=== PATIENT | female | born 1990 | race Caucasian/White ===

== ENCOUNTER 2022-02-13 15:25 | Inpatient (IN) | payer MEDICAID ==
[2022-02-13] MEDS ORDERED: KETOROLAC 15 MG/ML VIAL IVP STA (15:47)
[2022-02-13] MEDS ORDERED: DEXAMETHASONE 10 MG/ML VIAL IVP STA (15:47)
[2022-02-13] MEDS ORDERED: SODIUM CHLORIDE 0.9% 1,000 ML IV STA ×2 (15:47→16:19)
--- NOTE | 2022-02-13 15:50 | ED Physician Documentation ---
PD HPI URI - Stated complaint Stated Complaint: SOA,BACK PX - Chief complaint Chief Complaint: Fever - History obtained from History obtained from: Patient, Family - History of Present Illness Timing - onset: How many days ago (2) Timing duration: Days (2) Timing details: Gradual onset, Still present Associated symptoms: Fever, Chills, Sweats, Nasal congestion, Rhinorrhea, Sore throat, Dry cough, Dyspnea, Other (back and neck pain) Contributing factors: No: Sick contact Improves by: Rest, Medication Worsened by: Activity Similar symptoms before: Has not had sx before Recently seen: Not recently seen - Additional information Additional information: Previously well 31-year-old female has developed a fever cough congestion neck and back pain sweats muscle aches sore throat and urinary burning. Review of Systems Constitutional: reports: Fever, Chills, Myalgias, Fatigue, Sweats Eyes: denies: Decreased vision Ears: denies: Ear pain Nose: reports: Rhinorrhea / runny nose, Congestion Throat: reports: Sore throat Cardiac: denies: Chest pain / pressure, Palpitations Respiratory: reports: Dyspnea, Cough GI: denies: Abdominal Pain, Nausea, Vomiting, Constipation, Diarrhea : reports: Dysuria, Frequency Skin: denies: Rash Musculoskeletal: reports: Back pain. denies: Neck pain, Extremity pain Neurologic: reports: Headache. denies: Generalized weakness, Focal weakness, Numbness, Head injury, LOC PD PAST MEDICAL HISTORY - Present Medications Home Medications: Ambulatory Orders Medication Instructions Recorded Confirmed Dextroamphetamine/Amphetamine 10 mg PO DAILY 02/14/22 02/14/22 [Adderall Xr 10 mg Capsule] - Allergies Allergies/Adverse Reactions: Allergies Allergy/AdvReac Type Severity Reaction Status Date / Time No Known Drug Allergies Allergy Verified 02/13/22 15:36 PD ED PE NORMAL - Vitals Vital signs reviewed: Yes (Febrile tachycardic tachypneic and hypertensive with normal oxygen saturati) - General General: Alert and oriented X 3, Well developed/nourished, Other (The patient appears anxious and frustrated) - HEENT HEENT: Atraumatic, PERRL, EOMI, Ears normal, Other (erythema to the posterior pharynx) - Neck Neck: Supple, no meningeal sign, No bony TTP, Other (shoddy adenopathy bilaterally) - Cardiac Cardiac: No murmur, Other (tachy to 110) - Abdomen Abdomen: Soft, Non tender - Back Back: No CVA TTP, No spinal TTP - Derm Derm: Normal color, Warm and dry, No rash - Extremities Extremities: No deformity, No edema - Neuro Neuro: Alert and oriented X 3, 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, No motor deficit, No sensory deficit, Normal speech Eye Opening: Spontaneous Motor: Obeys Commands Verbal: Oriented GCS Score: 15 - Psych Psych: Normal mood, Normal affect Results - Vitals Vitals: Vital Signs - 24 hr 02/13/22 02/13/22 17:36 17:51 Heart Rate 99 98 Respiratory 18 17 Rate Blood Pressure 134/96 H 104/95 H O2 Saturation 99 99 Oxygen O2 Source Room air - Labs Labs: Microbiology 02/13/22 16:03 Blood Culture - Preliminary Blood - Left Arm NO GROWTH AFTER 1 DAY 02/13/22 15:50 Blood Culture - Preliminary Blood NO GROWTH AFTER 1 DAY 02/13/22 17:23 Urine Culture - Preliminary Urine,Catheterized CULTURE IN PROGRESS. RESULTS TO FOLLOW. 02/13/22 15:50 Group A Strep Throat Culture - Preliminary Throat CULTURE IN PROGRESS. RESULTS TO FOLLOW. Laboratory Tests 02/13/22 02/13/22 02/13/22 15:50 15:50 15:50 WBC 20.2 H RBC 3.85 L Hgb 12.1 Hct 37.0 MCV 96.1 MCH 31.4 H MCHC 32.7 RDW 14.3 Plt Count 245 MPV 9.0 Neut # (Auto) Not Reportable Lymph # (Auto) Not Reportable Elmore # (Auto) Not Reportable Eos # (Auto) Not Reportable Baso # (Auto) Not Reportable Absolute Nucleated RBC Not Reportable Total Counted 100 Band Neuts % (Manual) 6 Abnorm Lymph % (Manual) 0 Nucleated RBC % Not Reportable Neutrophils # (Manual) 19.4 H Lymphocytes # (Manual) 0.4 L Monocytes # (Manual) 0.4 Eosinophils # (Manual) 0.0 Basophils # (Manual) 0.0 Differential Comment MANUAL DIFFERENTIAL WBC Morphology NORMAL APPEARANCE Platelet Estimate NORMAL (130-450,000) Platelet Morphology NORMAL APPEARANCE RBC Morph Micro Appear NORMAL APPEARANCE Sodium Potassium Chloride Carbon Dioxide Anion Gap BUN Creatinine Estimated GFR (MDRD) Glucose Lactic Acid 2.7 H Calcium Total Bilirubin AST ALT Alkaline Phosphatase Total Protein Albumin Globulin Albumin/Globulin Ratio Lipase Urine Color Urine Clarity Urine pH Ur Specific Shafer Urine Protein Urine Glucose (UA) Urine Ketones Urine Occult Blood Urine Nitrite Urine Bilirubin Urine Urobilinogen Ur Leukocyte Esterase Urine RBC Urine WBC Ur Squamous Epith Cells Urine Bacteria Urine Mucus Ur Microscopic Review Urine Culture Comments Urine HCG, Qual Nasal Adenovirus (PCR) NOT DETECTED Nasal B. parapertussis DNA (PCR) NOT DETECTED Nasal Coronavir 229E PCR NOT DETECTED Nasal Coronavir HKU1 PCR NOT DETECTED Nasal Coronavir NL63 PCR NOT DETECTED Nasal Coronavir OC43 PCR NOT DETECTED Nasal Enterovir/Rhinovir PCR NOT DETECTED Nasal Influenza B PCR NOT DETECTED Nasal Influenza A PCR NOT DETECTED Nasal Parainfluen 1 PCR NOT DETECTED Nasal Parainfluen 2 PCR NOT DETECTED Nasal Parainfluen 3 PCR NOT DETECTED Nasal Parainfluen 4 PCR NOT DETECTED Nasal RSV (PCR) NOT DETECTED Nasal B.pertussis DNA PCR NOT DETECTED Nasal C.pneumoniae (PCR) NOT DETECTED Cristobal Human Metapneumo PCR NOT DETECTED Nasal M.pneumoniae (PCR) NOT DETECTED Nasal SARS-CoV-2 (PCR) NOT DETECTED Urine Opiates Screen Ur Oxycodone Screen Urine Methadone Screen Ur Propoxyphene Screen Ur Barbiturates Screen Ur Tricyclics Screen Ur Phencyclidine Scrn Ur Amphetamine Screen U Methamphetamines Scrn U Benzodiazepines Scrn Urine Cocaine Screen U Cannabinoids Screen Group A Strep Rapid 02/13/22 02/13/22 02/13/22 15:50 16:26 16:45 WBC RBC Hgb Hct MCV MCH MCHC RDW Plt Count MPV Neut # (Auto) Lymph # (Auto) Elmore # (Auto) Eos # (Auto) Baso # (Auto) Absolute Nucleated RBC Total Counted Band Neuts % (Manual) Abnorm Lymph % (Manual) Nucleated RBC % Neutrophils # (Manual) Lymphocytes # (Manual) Monocytes # (Manual) Eosinophils # (Manual) Basophils # (Manual) Differential Comment WBC Morphology Platelet Estimate Platelet Morphology RBC Morph Micro Appear Sodium 128 L Potassium 3.2 L Chloride 100 L Carbon Dioxide 20 L Anion Gap 8.0 BUN 9 Creatinine 0.6 Estimated GFR (MDRD) 118 Glucose 150 H Lactic Acid Calcium 8.3 L Total Bilirubin 0.5 AST 18 ALT 13 Alkaline Phosphatase 29 L Total Protein 6.2 L Albumin 3.5 Globulin 2.7 Albumin/Globulin Ratio 1.3 Lipase 25 Urine Color YELLOW Urine Clarity HAZY Urine pH 5.5 Ur Specific Shafer 1.025 Urine Protein NEGATIVE Urine Glucose (UA) 500 H Urine Ketones 40 H Urine Occult Blood TRACE-INTA Urine Nitrite NEGATIVE Urine Bilirubin NEGATIVE Urine Urobilinogen 0.2 (NORMAL) Ur Leukocyte Esterase NEGATIVE Urine RBC 0-5 Urine WBC 11-25 H Ur Squamous Epith Cells MOD Squamous H Urine Bacteria Few Urine Mucus Moderate Strands Ur Microscopic Review INDICATED Urine Culture Comments NOT INDICATED Urine HCG, Qual NEGATIVE Nasal Adenovirus (PCR) Nasal B. parapertussis DNA (PCR) Nasal Coronavir 229E PCR Nasal Coronavir HKU1 PCR Nasal Coronavir NL63 PCR Nasal Coronavir OC43 PCR Nasal Enterovir/Rhinovir PCR Nasal Influenza B PCR Nasal Influenza A PCR Nasal Parainfluen 1 PCR Nasal Parainfluen 2 PCR Nasal Parainfluen 3 PCR Nasal Parainfluen 4 PCR Nasal RSV (PCR) Nasal B.pertussis DNA PCR Nasal C.pneumoniae (PCR) Cristobal Human Metapneumo PCR Nasal M.pneumoniae (PCR) Nasal SARS-CoV-2 (PCR) Urine Opiates Screen Ur Oxycodone Screen Urine Methadone Screen Ur Propoxyphene Screen Ur Barbiturates Screen Ur Tricyclics Screen Ur Phencyclidine Scrn Ur Amphetamine Screen U Methamphetamines Scrn U Benzodiazepines Scrn Urine Cocaine Screen U Cannabinoids Screen Group A Strep Rapid Negative 02/13/22 02/13/22 17:23 17:23 WBC RBC Hgb Hct MCV MCH MCHC RDW Plt Count MPV Neut # (Auto) Lymph # (Auto) Elmore # (Auto) Eos # (Auto) Baso # (Auto) Absolute Nucleated RBC Total Counted Band Neuts % (Manual) Abnorm Lymph % (Manual) Nucleated RBC % Neutrophils # (Manual) Lymphocytes # (Manual) Monocytes # (Manual) Eosinophils # (Manual) Basophils # (Manual) Differential Comment WBC Morphology Platelet Estimate Platelet Morphology RBC Morph Micro Appear Sodium Potassium Chloride Carbon Dioxide Anion Gap BUN Creatinine Estimated GFR (MDRD) Glucose Lactic Acid Calcium Total Bilirubin AST ALT Alkaline Phosphatase Total Protein Albumin Globulin Albumin/Globulin Ratio Lipase Urine Color STRAW Urine Clarity CLEAR Urine pH 6.0 Ur Specific Shafer <=1.005 Urine Protein NEGATIVE Urine Glucose (UA) NEGATIVE Urine Ketones NEGATIVE Urine Occult Blood NEGATIVE Urine Nitrite NEGATIVE Urine Bilirubin NEGATIVE Urine Urobilinogen 0.2 (NORMAL) Ur Leukocyte Esterase TRACE H Urine RBC None Seen Urine WBC 6-10 H Ur Squamous Epith Cells NONE SEEN Urine Bacteria Rare Urine Mucus Ur Microscopic Review Urine Culture Comments INDICATED Urine HCG, Qual Nasal Adenovirus (PCR) Nasal B. parapertussis DNA (PCR) Nasal Coronavir 229E PCR Nasal Coronavir HKU1 PCR Nasal Coronavir NL63 PCR Nasal Coronavir OC43 PCR Nasal Enterovir/Rhinovir PCR Nasal Influenza B PCR Nasal Influenza A PCR Nasal Parainfluen 1 PCR Nasal Parainfluen 2 PCR Nasal Parainfluen 3 PCR Nasal Parainfluen 4 PCR Nasal RSV (PCR) Nasal B.pertussis DNA PCR Nasal C.pneumoniae (PCR) Cristobal Human Metapneumo PCR Nasal M.pneumoniae (PCR) Nasal SARS-CoV-2 (PCR) Urine Opiates Screen NEGATIVE Ur Oxycodone Screen NEGATIVE Urine Methadone Screen NEGATIVE Ur Propoxyphene Screen NEGATIVE Ur Barbiturates Screen NEGATIVE Ur Tricyclics Screen NEGATIVE Ur Phencyclidine Scrn NEGATIVE Ur Amphetamine Screen POSITIVE H U Methamphetamines Scrn NEGATIVE U Benzodiazepines Scrn NEGATIVE Urine Cocaine Screen NEGATIVE U Cannabinoids Screen NEGATIVE Group A Strep Rapid - Rads (name of study) chest Radiology: Prelim report reviewed (Impression: Portable chest within normal limits for age.), EMP read indepedently, See rad report PD MEDICAL DECISION MAKING - ED course Complexity details: reviewed old records, reviewed results, re-evaluated samir castellon, considered differential, d/w patient, d/w family ED course: 31-year-old Leah Kothari appears to be ill on arrival to the emergency department she is febrile tachycardic tachypneic and hypertensive. She has pains all over and our concern was for possible COVID. She has a markedly elevated white blood cell count and a bad sore throat more consistent with the possibility of acute strep infection. She is treated in the emergency department with intravenous saline dexamethasone and Toradol she has Dilaudid given for additional pain relief. She feels improved. She is treated empirically for respiratory illness concerning for sepsis with Rocephin and azithromycin. Her chest x-ray at here appears clear. The patient does have symptoms of urinary urgency frequency and dysuria and she does have 11-25 white blood cells per high-power field in the urine specimen which is contaminated with squamous cells.Her respiratory panel is negative.She is diagnosed with s epsis with a urinary source.Dr. Hook is consulted in the case and graciously agrees to admit the patient to the hospital. - Sepsis Event Current Stage of Sepsis: Sepsis Initial Hypotension: Not hypotensive Possible source of Sepsis: Genitourinary Mental/Cognitive Status: Alert/Oriented X3, Normal for patient Reason for not giving 30ml/kg crystalloid fluids: Not in septic shock Sepsis Comment: Identified a sepsis empirically administered Rocephin and azithromycin with potential respiratory source. The patient is symptomatic source includes urinary urgency frequency and dysuria and she does appear to have white blood cells in her urine. Departure - Departure Disposition: 66 [facility] DC/Xfer Clinical Impression: Septicemia Urinary tract infection Qualifiers: Urinary tract infection type: acute cystitis Hematuria presence: without hematuria Qualified Code(s): N30.00 - Acute cystitis without hematuria Discharge Date/Time: 02/13/22 18:39
[2022-02-13 15:56] LABS: BASOPHILS % (AUTO) 0.2 %; HGB - HEMOGLOBIN 12.1 g/dL (12.0-16.0); LYMPHOCYTES % (AUTO) 1.3 %; MEAN CORPUSCULAR HEMOGLOBIN 31.4 pg (27.0-31.0); MEAN CORPUSCULAR HGB CONC 32.7 g/dL (32.0-36.0); MEAN CORPUSCULAR VOLUME 96.1 fL (81.0-99.0); MONOCYTES % (AUTO) 6.8 %; NEUTROPHILS % (AUTO) 91.2 %; PLT - PLATELET COUNT 245 10^3/uL (130-450); RED BLOOD COUNT 3.85 10^6/uL (4.20-5.40); RED CELL DISTRIBUTION WIDTH 14.3 % (12.0-15.0); WHITE BLOOD COUNT 20.2 x10^3/uL (4.8-10.8)
[2022-02-13 15:57] LABS: ABNORMAL LYMPHS % (MANUAL) 0 %
[2022-02-13] MEDS ORDERED: HYDROmorphone 1 MG/ML CARPUJECT IVP STA (16:10)
[2022-02-13] MEDS ORDERED: ONDANSETRON 4 MG/2 ML VIAL IVP STA (16:10)
--- NOTE | 2022-02-13 16:15 | XRAY Report ---
PROCEDURE: Chest 1 View X-Ray INDICATIONS: chest pain TECHNIQUE: One view of the chest was acquired. COMPARISON: None FINDINGS: Surgical changes and devices: None. Lungs and pleura: No pleural effusions or pneumothorax. Lungs are clear. Mediastinum: Mediastinal contours appear normal. Heart size is normal. Bones and chest wall: No suspicious bony lesions. Overlying soft tissues appear unremarkable. IMPRESSION: Portable chest within normal limits for age. Reviewed by: Brigido Sainz MD on 02/13/2022 3:14 PM [facility] Approved by: Brigido Sainz MD on 02/13/2022 3:14 PM [facility] Station ID: [id number]
[2022-02-13 16:20] LABS: RAPID STREP SCREEN Negative (Negative)
[2022-02-13] MEDS ORDERED: cefTRIAXone 1 GM in SODIUM CHLORIDE 0.9% MINIBAG 100 ML IV STA (16:27)
[2022-02-13] MEDS ORDERED: AZITHROMYCIN INJ 500 MG in SODIUM CHLORIDE 0.9% 250 ML IV STA (16:27)
[2022-02-13 16:31] LABS: BAND NEUTROPHILS % (MANUAL) 6 %; LYMPHOCYTES # (MANUAL) 0.4 10^3/uL (1.5-3.5); LYMPHOCYTES % (MANUAL) 2 %; MONOCYTES # (MANUAL) 0.4 10^3/uL (0.0-1.0); NEUTROPHILS # (MANUAL) 19.4 10^3/uL (1.5-6.6)
[2022-02-13 16:32] LABS: DIFFERENTIAL COMMENT MANUAL DIFFERENTIAL; PLATELET ESTIMATE, MANUAL NORMAL (130-450,000) (NORMAL); PLATELET MORPHOLOGY NORMAL APPEARANCE (NORMAL); RBC MORPHOLOGY (MULTIPLE) NORMAL APPEARANCE (NORMAL); WBC MORPHOLOGY (MULTIPLE) NORMAL APPEARANCE (NORMAL)
[2022-02-13 16:41] LABS: ALBUMIN 3.5 g/dL (3.2-5.5); ALBUMIN/GLOBULIN RATIO 1.3 (1.0-2.2); BILIRUBIN,TOTAL 0.5 mg/dL (0.2-1.0); CALCIUM 8.3 mg/dL (8.5-10.3); CREATININE 0.6 mg/dL (0.4-1.0); POTASSIUM 3.2 mmol/L (3.5-5.0); TOTAL PROTEIN 6.2 g/dL (6.7-8.2)
[2022-02-13 16:50] LABS: BILIRUBIN,URINE NEGATIVE (NEGATIVE); GLUCOSE, URINE (UA) 500 mg/dL (NEGATIVE); KETONES,URINE (UA) 40 mg/dL (NEGATIVE); LEUKOCYTE ESTERASE, URINE NEGATIVE (NEGATIVE); NITRITE,URINE NEGATIVE (NEGATIVE); OCCULT BLOOD,URINE TRACE-INTA (NEGATIVE); PH,URINE 5.5 PH (5.0-7.5); PROTEIN,URINE NEGATIVE (NEGATIVE); UROBILINOGEN,URINE 0.2 (NORMAL) E.U./dL (NORMAL)
[2022-02-13 16:54] LABS: CLARITY,URINE HAZY (CLEAR); HCG UR QUAL NEGATIVE
[2022-02-13 17:01] LABS: CORONAVIRUS 229E-RESP PCR NOT DETECTED; CORONAVIRUS HKU1-RESP PCR NOT DETECTED; CORONAVIRUS NL63-RESP PCR NOT DETECTED; CORONAVIRUS OC43-RESP PCR NOT DETECTED; HUMAN METAPNEUMOVIRUS NOT DETECTED; INFLUENZA A- RESP PCR PANEL NOT DETECTED; INFLUENZA B - RESP PCR PANEL NOT DETECTED; PARAINFLUENZA VIRUS 1 NOT DETECTED; PARAINFLUENZA VIRUS 2 NOT DETECTED; RHINOVIRUS/ENTEROVIRUS NOT DETECTED; SARS-CoV-2 -RESP PCR PANEL NOT DETECTED
[2022-02-13 17:02] LABS: B. PARAPERTUSSIS- RESP PCR PAN NOT DETECTED; B. PERTUSSIS- RESP PCR PANEL NOT DETECTED; C. PNEUMONIAE- RESP PCR PANEL NOT DETECTED; M. PNEUMONIAE- RESP PCR PANEL NOT DETECTED; PARAINFLUENZA VIRUS 3 NOT DETECTED; PARAINFLUENZA VIRUS 4 NOT DETECTED; RSV- RESP PCR PANEL NOT DETECTED
[2022-02-13 17:03] LABS: BACTERIA,URINE Few /HPF (None Seen); RBC,URINE 0-5 /HPF (0-5); SQUAMOUS EPITHELIAL CELL,UR MOD Squamous (<= Few)
[2022-02-13 17:04] LABS: MUCUS,URINE Moderate Strands
--- NOTE | 2022-02-13 18:03 | CT Report ---
PROCEDURE: Abdomen/Pelvis WO INDICATIONS: urinary sepsis ? obstruction TECHNIQUE: Noncontrast 5 mm thick sections acquired from the diaphragms to the symphysis. 5 mm coronal and sagi ttal reformats were then performed. For radiation dose reduction, the following was used: automated exposure control, adjustment of mA and/or kV according to patient size. COMPARISON: None. FINDINGS: Image quality: Excellent. ABDOMEN: Lung bases: Small to moderate sized airspace opacity left infrahilar region is seen. Heart size is n ormal. Solid organs: There is hepatomegaly, no discrete hepatic lesion. Spleen is normal in size. Gallbladd er is within normal limits Pancreas is normal in contours. No adrenal nodules. Kidneys are normal in size, without hydronephrosis or nephrolithiasis. Peritoneum and bowel: Unenhanced bowel loops demonstrate normal wall thickness and caliber. No free fluid or air. Mild fecal stasis in the colon is seen. Appendix is visualized in right lower quadran t and is within normal limits. Nodes and vessels: No retroperitoneal or mesenteric adenopathy by siz e criteria. Aorta and inferior vena cava are normal in caliber. Miscellaneous: No ventral hernias. PELVIS: Genitourinary: Bladder wall thickness is normal. Miscellaneous: No inguinal hernias or adenopathy. Uterus and bilateral ovaries shows no gross abnorm ality. Bones: No suspicious bony lesions. No vertebral body compression fractures. IMPRESSION: 1. Left lower lobe infiltrate/atelectasis extending to the left infrahilar region. 2. Mild hepatomegaly, no discrete hepatic lesion. 3. Mild constipation. No bowel obstruction or abnormal bowel wall thickening. Normal appendix. No cristine e fluid or free air. 4. No renal stone or hydronephrosis. Reviewed by: Vance Lindsey MD on 02/13/2022 6:02 PM PDT Approved by: Vance Lindsey MD on 02/13/2022 6:02 PM PDT Station ID: [id number]
[2022-02-13] MEDS ORDERED: ONDANSETRON ODT 4 MG TABLET TL PRN (18:09)
[2022-02-13] MEDS ORDERED: SODIUM CHLORIDE FLUSH 0.9% 10 ML SYRINGE IVP PRN (18:09)
[2022-02-13] MEDS ORDERED: ONDANSETRON 4 MG/2 ML VIAL IVP PRN (18:09)
[2022-02-13] MEDS ORDERED: SODIUM CHLORIDE 0.9% 1,000 ML IV ONE (18:18)
[2022-02-13] MEDS ORDERED: POTASSIUM CHLORIDE 20 MEQ TABLET PO ONE (18:29)
[2022-02-13] MEDS: MORPHINE 2 MG/ML CARPUJECT IVP PRN ×3 (19:10→23:19)
[2022-02-13] MEDS: SODIUM CHLORIDE 0.9% 1,000 ML IV SCH (19:57)
--- NOTE | 2022-02-13 20:09 | HISTORY & PHYSICAL EXAMINATION ---
Chief Complaint - Chief Complaint Chief Complaint: Sore throat, severe left neck and left arm pain with fevers History of Present Illness - Admitted From Admitted From:: Home - History Obtained From Records Reviewed: [facility] History obtained from: Patient Exam Limitations: None - History of Present Illness HPI Comment/Other: She is a 31-year-old white female who has no major medical illnesses. She drinks 2 bottles of wine a week and vapes occasionally. 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 She works all the time. But she tries to eat right and exercise. She has ADHD with some anxiety and is in therapy for that. She says that she has allergies and when she moved to the [place] in October 2020 she was diagnosed as having "jogger's asthma". She will get a runny nose, postnasal drip, and a cough. Yesterday, she felt very fatigued. She had a sore throat and thought that she had recurrence of her allergies. This morning she woke up with diffuse body aches that were severe. She developed a dry, nonproductive cough. Her lungs felt like "they were on fire." Fevers were present.. She denies eustachian tube dysfunction, ear pain, exudate. There was tremendous pain in her C spine that radiated down her left arm and made her left arm numb. Sometimes the pain would radiate down to the shoulder and then to the front of her left upper chest around her clavicle. She was miserable with the diffuse aches. She denies urgency, frequency. She says that she gets occasional urinary tract infections and has no symptoms of that. She finally drove her self to the emergency room when the left neck and left arm pain became unbearable. She had taken some Tylenol and there is no relief of the pain or the fever. Every time she tried to lay back the pain in her neck was excruciating. When she was in the emergency room she was crying with the pain. Temperature was 38.4. Heart rate 117. Blood pressure 140/81. Respirations 26. 98% on room air. She scored her pain at a 10 out of a 10. On examination the emergency room doctor noted her to be febrile, tachycardic, tachypneic. Anxious, frustrated. Erythema to the posterior pharynx. No meningeal signs. No mention of her lung exam. Cardiac exam was negative other than tachycardia to 110. Sodium was 128. Potassium 3.2. Chloride 100. Carbon dioxide 20. BUN and creatinine were normal. Glucose 150. Lactic acid 2.7. White cell count 20.2 thousand. Hemoglobin 12.1. Urinalysis had squamous cells and has to be repeated. She had glucosuria, ketonuria, white cells, a few bacteria and was leukocyte Estrace negative and nitrite negative. PCR was negative for COVID. Group A rapid strep was negative. Chest x-ray was normal without any acute cardiopulmonary process. A CT of abdomen and pelvis was done to make sure that she had no urinary sepsis and she had hepatomegaly. She had a small to moderate size airspace opacity in the left infrahilar region. Bowels are normal. Bladder was normal. Constipation. Treatment in the emergency room consisted of fluids, empiric antibiotic therapy in the face of someone who has sepsis criteria emergent. She is also received morphine. Her tachycardia has gotten better. Fever is gone and she has a temp of 37.2. Blood pressure came down to 104 and then is bounced back up to 122. Respirations are down to 13. Lactic acid is normal. History - Past Medical History Cardiovascular: reports: None Respiratory: reports: Asthma (From allergies.) Neuro: reports: None Endocrine/Autoimmune: reports: None GI: reports: None DESIGN TECH: reports: Other () : reports: Other (intermittent cystitis) HEENT: reports: Other (astigmatism) Psych: reports: Anxiety, ADD/ADHD Musculoskeletal: reports: None Derm: reports: None MRSA Hx?: No - Family & Social History Family History Comment/Other: Dad is approximately 60 years of age and has high blood pressure, diabetes, peripheral neuropathy. Mom has high blood pressure. 4 sisters. All of them are healthy and have no major medical illnesses. No children Living arrangement: At home Living Situation: Alone Social History Notes: [place]. [place] and that is where she lives. Her parents are nearby. And she gets a lot of social support from family and friends here. She is self-employed as an lead accountant. She is pretty stressed. Drinks about 2 bottles of wine a week, vapes intermittently. No tobacco products. Intermittent marijuana. No use of cocaine, heroin, LSD, methamphetamines. - Substance History Use: Uses substance without health or social issues: Tobacco, Alcohol - POLST Patient has POLST: No POLST Status: Full Code Meds/Allgy - Allergies Allergies/Adverse Reactions: Allergies Allergy/AdvReac Type Severity Reaction Status Date / Time No Known Drug Allergies Allergy Verified 02/13/22 15:36 Review of Systems - Constitutional Constitutional: reports: Fatigue, Fever, Chills, Malaise, Weakness, Poor appetite - Eyes Eyes: reports: Blurred vision (from astigmatism). denies: Pain, Irritation, Amaurosis, Dipolpia - Ears, Nose & Throat Ears, Nose & Throat: reports: Nasal congestion, Postnasal drainage, Sore throat. denies: Ear pain, Hearing loss, Hearing aids, Tinnitus, Vertigo, Nasal discharge, Nosebleeds, Nasal obstruction - Cardiovascular Cariovascular: denies: Irregular heart rate, Palpitations, Chest pain, Edema, Syncope, Exertional dyspnea, Decr. exercise tolerance - Respiratory Respiratory: reports: Cough, Wheezing. denies: Sputum production, Snoring, Hemoptysis, Orthopnea, SOB at rest, SOB with exertion, Apnea, Stridor - Gastrointestinal Gastrointestinal: reports: Constipation, Poor appetite. denies: Abdominal pain, Abdominal distention, Diarrhea, Change in bowel habits, Rectal bleeding, Black stools, Bloody stools, Nausea, Vomiting, Coffee grounds emesis, Reflux/heartburn - Genitourinary Genitourinary: reports: Other (So has not been taking them for the last year. Can get painful cramps with menstrual cycle). denies: Dysuria, Frequency, Urgency, Hematuria, Incontinence, Flank pain - Musculoskeletal Musculoskeletal: reports: Muscle pain, Back pain, Muscle aches - Integumentary Integumentary: denies: Rash, Pruritis, Lesions, Dryness - Neurological Neurological: denies: General weakness, Focal weakness, Headache, Dizziness, Numbness, Memory problems, Pre-existing deficit, Seizures, Incoordination - Psychiatric Psychiatric: reports: Anxiety. denies: Depression, Suicidal, Hallucinations, Homicidal - Endocrine Endocrine: denies: Polyuria, Polydypsia, Polyphagia - Hematologic/Lymphatic Hematologic/Lymphatic: denies: Anemia, Bruising, Petechiae Prior Level of Functionality: Completely independent with activities of daily living. She drives a car. Runs her own business. Exam - Vital Signs Reviewed Vital Signs: Yes Vital Signs: Vital Signs x48h Temp Pulse Pulse Resp BP BP Pulse Ox 02/13/22 18:59 37.2 C 88 13 122/75 99 02/13/22 17:51 98 17 104/95 H 99 02/13/22 17:36 99 18 134/96 H 99 02/13/22 15:36 110 H 18 151/97 H 98 02/13/22 15:33 38.4 C H 117 H 26 H 140/81 H 98 - Physical Exam General Appearance: positive: No acute distress, Alert, Mild distress (Anxious. Cannot believe this is happening to her. Mild tearfulness. But she is already asking for her computer so that she can work while she is sick in the hospital) Eyes Bilateral: positive: PERRL, EOMI ENT: positive: Pharyngeal erythema, Dry mucous membranes. negative: Purulent nasal drainage Neck: positive: No JVD. negative: Lymphadenopathy (R), Lymphadenopathy (L), Stiff neck, Carotid bruit Respiratory: positive: No respiratory distress. negative: Wheezes, Rales, Rhonchi Cardiovascular: positive: Regular rate & rhythm, No murmur, No gallop Peripheral Pulses: positive: 1+ Abdomen: positive: Non-tender, No organomegaly, Nml bowel sounds, No distention Skin: positive: Warm, Dry Extremities: positive: Full ROM, No pedal edema Neurologic/Psychiatric: positive: Oriented x3, CN's nml (2-12), Motor nml, Other (She describes a radiculopathy in the C-spine but muscle reflexes and strength is normal in the left arm) Sepsis Event Note (H) - Evaluation Current Stage of Sepsis: Sepsis Possible source of Sepsis: positive: Pulmonary, Genitourinary - Sepsis Criteria Sepsis Criteria: Recorded Temperature greater than 38.3C or Less than 36C, Recorded Heart Rate greater than 90 bpm, Recorded Respiratory Rate greater than 20, WBC count greater than 12,000 or less than 4000, Metabolic: lactate > 2 mmol/L Conclusion/Plan - Problem List (1) Septicemia Conclusion/Plan: Sepsis criteria on presentation. She was signed out to me as a possible UTI but urine was contaminated. We are awaiting a second urine. However, the CT of the abdomen seems to state conclusively that she does have pneumonia. She is on azithromycin and ceftriaxone. Has already received 1 dose. Blood cultures have been done. Lactic acid is already normal. Plan: Follow through with sepsis protocol. Reevaluate in the next few hours to make s ure she is not taking a step back (2) Left lower lobe pneumonia Conclusion/Plan: In a healthy 31-year-old female. However she has mild alcohol abuse, hypergly cemia on labs, and may be at risk for strep. Plan: Follow-up on blood cultures Continue antibiotics empirically until we have cultures and sensitivity Qualifiers: Pneumonia type: due to unspecified organism Qualified Code(s): J18.9 - Pneumonia, unspecified organism (3) Hyperglycemia Conclusion/Plan: She does not have a history of diabetes. She did not receive D5 in the emergency room. I do not have access to the EMS records to see if they gave her D5 on the scene. Plan: Check hemoglobin A1c in the morning Check fasting glucose in the morning (4) Hypokalemia Conclusion/Plan: She is received potassium 40 mEq p.o. once. We will recheck tomorrow morning. (5) Radiculopathy of cervical spine Conclusion/Plan: This pain is new for her. She is never had it before. In the face of sepsis, I want to make sure she does not have a C-spine infection. There is no evidence of meningitis on neck exam. History is suggestive of radiculopathy and exam is negative for any severe compression. Plan: C-spine CT morphine IV prn oxycodone prn (6) Alcohol abuse Conclusion/Plan: With hepatomegaly on CT of the abdomen a well as hyponatremia. Liver enzymes are normal. Plan: Thiamine and folate orally Monitor for signs and symptoms of alcohol withdrawal I have encouraged the patient to stop drinking completely check MUDDS (7) Anxiety Conclusion/Plan: Patient states that she has ADHD, but some of her work symptomatology of insomnia, excessive wariness, may be due to a generalized anxiety disorder. She is also anxious about her health right now, understandably so. At this time she is self-medicating with alcohol and vaping. She is in therapy. I have encouraged her to continue therapy and use other coping mechanisms besides the alcohol and vaping. - Lab Results Lab results reviewed: Yes Fish Bones: 02/13/22 15:50 02/13/22 16:26 - Diagnostic Imaging Results Diagnostic Imaging Results: positive: Final report reviewed - EKG Results EKG Interpreted Independently: No Core Measures - Anticipated LOS I expect patient to be DC'd or transferred within 96 hours.: Yes - DVT/VTE - Prophylaxis VTE/DVT Prophylaxis med ordered at admit?: Yes
[2022-02-13 20:45] LABS: MUDS CUTOFF CONCENTRATIONS CUTOFF CONC BELOW:
[2022-02-13 20:54] LABS: BILIRUBIN,URINE NEGATIVE (NEGATIVE); GLUCOSE, URINE (UA) NEGATIVE (NEGATIVE); KETONES,URINE (UA) NEGATIVE (NEGATIVE); LEUKOCYTE ESTERASE, URINE TRACE (NEGATIVE); NITRITE,URINE NEGATIVE (NEGATIVE); OCCULT BLOOD,URINE NEGATIVE (NEGATIVE); PROTEIN,URINE NEGATIVE (NEGATIVE); UROBILINOGEN,URINE 0.2 (NORMAL) E.U./dL (NORMAL)
[2022-02-13 20:55] LABS: CLARITY,URINE CLEAR (CLEAR)
[2022-02-13 21:03] LABS: BACTERIA,URINE Rare /HPF (None Seen); RBC,URINE None Seen /HPF (0-5); SQUAMOUS EPITHELIAL CELL,UR NONE SEEN (<= Few)
[2022-02-13 21:04] LABS: AMPHETAMINE SCREEN,URINE POSITIVE (NEGATIVE); BARBITURATE SCREEN,UR NEGATIVE (NEGATIVE); BENZODIAZEPINES SCREEN, URINE NEGATIVE (NEGATIVE); COCAINE SCREEN URINE NEGATIVE (NEGATIVE); METHADONE SCREEN, URINE NEGATIVE (NEGATIVE); METHAMPHETAMINES SCREEN, URINE NEGATIVE (NEGATIVE); OPIATE SCREEN, URINE NEGATIVE (NEGATIVE); OXYCODONE SCREEN, URINE NEGATIVE (NEGATIVE); PROPOXYPHENE SCREEN, URINE NEGATIVE (NEGATIVE); THC CANNABINOID SCREEN, URINE NEGATIVE (NEGATIVE); TRICYCLIC ANTIDEPRESSANT,URINE NEGATIVE (NEGATIVE)
[2022-02-14] MEDS: MORPHINE 2 MG/ML CARPUJECT IVP PRN ×3 (01:15→09:12)
[2022-02-14] MEDS: SODIUM CHLORIDE FLUSH 0.9% 10 ML SYRINGE IVP SCH ×3 (01:38→18:58)
[2022-02-14 05:56] LABS: CALCIUM, IONIZED 1.07 mmol/L (1.15-1.33); VBG PH 7.342 (7.31-7.41)
--- NOTE | 2022-02-14 05:56 | CT Report ---
PROCEDURE: CERVICAL SPINE WO INDICATIONS: C SPINE RADICULPATHY W SEPSIS TECHNIQUE: Noncontrast 3 mm thick sections acquired from the skull base to the T4 level. Sagittal and coronal r eformats were then constructed. For radiation dose reduction, the following was used: automated exp osure control, adjustment of mA and/or kV according to patient size. Intravenous contrast not adminis tered due to institutional policy secondary to limited supply. COMPARISON: None. FINDINGS: Image quality: There is metallic streak artifact secondary to patient's dental hardware. Bones: No fractures or subluxation. There is mild straightening of the cervical lordosis. There is m inimal degenerative disc disease at C5-C6. Visualized superior ribs are intact. Soft tissues: Prevertebral soft tissues are normal in thickness. No paravertebral hematomas. No dis crete paravertebral fluid collections are identified to suggest an abscess. Specifically, no definite epidural abscess identified. No apical pneumothoraces. IMPRESSION: 1. No fractures or subluxation. 2. No definite paravertebral fluid collections identified on noncontrast evaluation to suggest an abs cess. If clinical concern persists, follow-up evaluation may be obtained with an MRI. Reviewed by: Nasim Casas MD on 02/13/2022 10:34 PM PDT Approved by: Nasim Casas MD on 02/13/2022 10:34 PM PDT Station ID: [id number]
[2022-02-14 06:00] LABS: BASOPHILS % (AUTO) 0.3 %; HCT - HEMATOCRIT 37.5 % (37.0-47.0); HGB - HEMOGLOBIN 12.1 g/dL (12.0-16.0); LYMPHOCYTES % (AUTO) 4.4 %; MEAN CORPUSCULAR HEMOGLOBIN 31.9 pg (27.0-31.0); MEAN CORPUSCULAR HGB CONC 32.3 g/dL (32.0-36.0); MEAN CORPUSCULAR VOLUME 98.9 fL (81.0-99.0); MEAN PLATELET VOLUME 9.3 fL (7.9-10.8); MONOCYTES % (AUTO) 5.8 %; PLT - PLATELET COUNT 237 10^3/uL (130-450); RED BLOOD COUNT 3.79 10^6/uL (4.20-5.40); RED CELL DISTRIBUTION WIDTH 13.3 % (12.0-15.0); WHITE BLOOD COUNT 23.2 x10^3/uL (4.8-10.8)
[2022-02-14 06:04] LABS: ABNORMAL LYMPHS % (MANUAL) 0 %
[2022-02-14 06:14] LABS: BAND NEUTROPHILS % (MANUAL) 2 %; DIFFERENTIAL COMMENT MANUAL DIFFERENTIAL; LYMPHOCYTES # (MANUAL) 0.7 10^3/uL (1.5-3.5); LYMPHOCYTES % (MANUAL) 3 %; MONOCYTES # (MANUAL) 0.7 10^3/uL (0.0-1.0); NEUTROPHILS # (MANUAL) 21.8 10^3/uL (1.5-6.6); PLATELET ESTIMATE, MANUAL NORMAL (130-450,000) (NORMAL); PLATELET MORPHOLOGY NORMAL APPEARANCE (NORMAL); RBC MORPHOLOGY (MULTIPLE) NORMAL APPEARANCE (NORMAL); WBC MORPHOLOGY (MULTIPLE) NORMAL APPEARANCE (NORMAL)
[2022-02-14 06:15] LABS: CALCIUM 8.4 mg/dL (8.5-10.3); CREATININE 0.7 mg/dL (0.4-1.0); PHOSPHORUS 1.7 mg/dL (2.5-4.6); POTASSIUM 3.9 mmol/L (3.5-5.0)
[2022-02-14] MEDS: SODIUM CHLORIDE 0.9% 1,000 ML IV SCH (06:15)
[2022-02-14] MEDS: CALCIUM CARBONATE CHEW 500 MG TABLET PO SCH ×2 (08:50→11:39)
[2022-02-14] MEDS: ENOXAPARIN 40 MG/0.4 ML SYRINGE SUBQ SCH (08:52)
[2022-02-14] MEDS: polyethylene glycoL 3350 17 GM PACKET PO SCH (09:05)
[2022-02-14] MEDS: cefTRIAXone 2 GM in SODIUM CHLORIDE 0.9% MINIBAG 100 ML IV SCH (09:05)
[2022-02-14] MEDS: AZITHROMYCIN INJ 500 MG in SODIUM CHLORIDE 0.9% 250 ML IV SCH (09:53)
[2022-02-14 10:13] LABS: ESTIMATED AVERAGE GLUCOSE 97 mg/dL (70-100)
--- NOTE | 2022-02-14 13:25 | PROVIDER PROGRESS NOTE ---
Subjective - Prog Note Date Prog Note Date: 02/14/22 - Subjective Subjective: She reports feeling much better compared to yesterday. Still has left-sided neck pain and some dysuria as well as left-sided flank pain. She has left-sided chest pain with inspiration. No cough and she does not feel short of breath. Current Medications - Current Medications Current Medications: Active Medications Acetaminophen (Acetaminophen 325 Mg Tablet) 650 mg PO Q4HR PRN PRN Reason: Pain 1 to 4, or Fever Enoxaparin Sodium (Enoxaparin 40 Mg/0.4 Ml Syringe) 40 mg SUBQ DAILY [facility] Last Admin: 02/14/22 08:52 Dose: 40 mg Ceftriaxone Sodium 2 gm/ (Sodium Chloride) 100 mls @ 200 mls/hr IV DAILY [facility] Last Infusion: 02/14/22 09:45 Dose: Infused Azithromycin 500 mg/ Sodium (Chloride) 250 mls @ 250 mls/hr IV DAILY [facility] Stop: 02/15/22 09:59 Last Infusion: 02/14/22 11:08 Dose: Infused Ondansetron HCl (Ondansetron Odt 4 Mg Tablet) 4 mg TL Q6HR PRN PRN Reason: Nausea / Vomiting Last Admin: 02/14/22 11:44 Dose: 4 mg Ondansetron HCl (Ondansetron 4 Mg/2 Ml Vial) 4 mg IVP Q6HR PRN PRN Reason: Nausea / Vomiting Polyethylene Glycol (Polyethylene Glycol 3350 17 Gm Packet) 17 gm PO DAILY [facility] Last Admin: 02/14/22 09:05 Dose: 17 gm Sodium Chloride (Sodium Chloride Flush 0.9% 10 Ml Syringe) 10 ml IVP 0100,0900,1700 [facility] Last Admin: 02/14/22 08:52 Dose: 10 ml Sodium Chloride (Sodium Chloride Flush 0.9% 10 Ml Syringe) 10 ml IVP PRN PRN PRN Reason: NEEDED PER PROVIDER ORDERS Dextroamphetamine/Amphetamine [Adderall Xr 10 mg Capsule] 10 mg PO DAILY 02/14/22 Objective - Vital Signs/Intake & Output Reviewed Vital Signs: Yes Vital Signs: Vital Signs x48h Pulse Resp BP Pulse Ox 02/14/22 09:00 91 16 122/78 100 02/14/22 07:00 55 L 14 113/69 99 Intake & Output: Intake & Output 06/1002/12/22 02/13/22 02/14/22 23:59 23:59 23:59 23:59 Intake Total 3950 2730 Balance 3950 2730 - Objective General Appearance: positive: No acute distress, Alert Eyes Bilateral: positive: Normal inspection, Conjunctivae nml ENT: positive: ENT inspection nml Neck: positive: Nml inspection. negative: Stiff neck Respiratory: positive: No respiratory distress. negative: Wheezes, Rales Cardiovascular: positive: Regular rate & rhythm, No murmur. negative: Tachy cardia Abdomen: positive: Nml bowel sounds, No distention, Tenderness (Mild tenderness diffusely). negative: Guarding, Rebound Back: positive: Nml inspection, CVA tenderness (L). negative: CVA tenderness (R) Skin: positive: Warm, Dry Extremities: positive: No pedal edema Neurologic/Psychiatric: positive: Motor nml. negative: Disoriented to person, Disoriented to place - Lab Results Fish Bones: 02/14/22 05:41 02/14/22 05:41 Other Labs: Lab Results x24hrs 02/14/22 02/14/22 02/14/22 Range/Units 05:41 05:41 05:41 WBC (4.8-10.8) x10^3/uL RBC (4.20-5.40) 10^6/uL Hgb (12.0-16.0) g/dL Hct (37.0-47.0) % MCV (81.0-99.0) fL MCH (27.0-31.0) pg MCHC (32.0-36.0) g/dL RDW (12.0-15.0) % Plt Count (130-450) 10^3/uL MPV (7.9-10.8) fL Neut # (Auto) Lymph # (Auto) [place] # (Auto) Eos # (Auto) Baso # (Auto) Absolute Nucleated RBC Total Counted Band Neuts % (Manual) (0 - 10) % Abnorm Lymph % (Manual) % Nucleated RBC % Neutrophils # (Manual) (1.5-6.6) 10^3/uL Lymphocytes # (Manual) (1.5-3.5) 10^3/uL Monocytes # (Manual) (0.0-1.0) 10^3/uL Eosinophils # (Manual) (0-0.7) 10^3/uL Basophils # (Manual) (0-0.1) 10^3/uL Differential Comment WBC Morphology (NORMAL) Platelet Estimate (NORMAL) Platelet Morphology (NORMAL) RBC Morph Micro Appear (NORMAL) VBG pH 7.342 (7.31-7.41) Ionized Calcium 1.07 L (1.15-1.33) mmol/L Sodium 136 (135-145) mmol/L Potassium 3.9 (3.5-5.0) mmol/L Chloride 108 (101-111) mmol/L Carbon Dioxide 24 (21-32) mmol/L Anion Gap 4.0 L (6-13) BUN 8 (6-20) mg/dL Creatinine 0.7 (0.4-1.0) mg/dL Estimated GFR (MDRD) 99 (>89) Glucose 148 H (70-100) mg/dL Estimat Average Glucose 97 (70-100) mg/dL Hemoglobin A1c % 5.0 (4.27-6.07) % Lactic Acid (0.5-2.2) mmol/L Calcium 8.4 L (8.5-10.3) mg/dL Phosphorus 1.7 L (2.5-4.6) mg/dL Magnesium 2.0 (1.7-2.8) mg/dL Total Bilirubin (0.2-1.0) mg/dL AST (10-42) IU/L ALT (10-60) IU/L Alkaline Phosphatase (42-121) IU/L Total Protein (6.7-8.2) g/dL Albumin (3.2-5.5) g/dL Globulin (2.1-4.2) g/dL Albumin/Globulin Ratio (1.0-2.2) Lipase (22-51) U/L Urine Color Urine Clarity (CLEAR) Urine pH (5.0-7.5) PH Ur Specific [place] (1.002-1.030) Urine Protein (NEGATIVE) mg/dL Urine Glucose (UA) (NEGATIVE) mg/dL Urine Ketones (NEGATIVE) mg/dL Urine Occult Blood (NEGATIVE) Urine Nitrite (NEGATIVE) Urine Bilirubin (NEGATIVE) Urine Urobilinogen (NORMAL) E.U./dL Ur Leukocyte Esterase (NEGATIVE) Urine RBC (0-5) /HPF Urine WBC (0-5) /HPF Ur Squamous Epith Cells (<= Few) Urine Bacteria (None Seen) /HPF Urine Mucus Ur Microscopic Review Urine Culture Comments Urine HCG, Qual Nasal Adenovirus (PCR) Nasal B. parapertussis DNA (PCR) Nasal Coronavir 229E PCR Nasal Coronavir HKU1 PCR Nasal Coronavir NL63 PCR Nasal Coronavir OC43 PCR Nasal Enterovir/Rhinovir PCR Nasal Influenza B PCR Nasal Influenza A PCR Nasal Parainfluen 1 PCR Nasal Parainfluen 2 PCR Nasal Parainfluen 3 PCR Nasal Parainfluen 4 PCR Nasal RSV (PCR) Nasal Screen MRSA (PCR) (NEGATIVE) Nasal B.pertussis DNA PCR Nasal C.pneumoniae (PCR) Cristobal Human Metapneumo PCR Nasal M.pneumoniae (PCR) Nasal SARS-CoV-2 (PCR) Urine Opiates Screen (NEGATIVE) Ur Oxycodone Screen (NEGATIVE) Urine Methadone Screen (NEGATIVE) Ur Propoxyphene Screen (NEGATIVE) Ur Barbiturates Screen (NEGATIVE) Ur Tricyclics Screen (NEGATIVE) Ur Phencyclidine Scrn (NEGATIVE) Ur Amphetamine Screen (NEGATIVE) U Methamphetamines Scrn (NEGATIVE) U Benzodiazepines Scrn (NEGATIVE) Urine Cocaine Screen (NEGATIVE) U Cannabinoids Screen (NEGATIVE) Group A Strep Rapid (Negative) 02/14/22 02/13/22 02/13/22 Range/Units 05:41 19:37 18:22 WBC 23.2 H (4.8-10.8) x10^3/uL RBC 3.79 L (4.20-5.40) 10^6/uL Hgb 12.1 (12.0-16.0) g/dL Hct 37.5 (37.0-47.0) % MCV 98.9 (81.0-99.0) fL MCH 31.9 H (27.0-31.0) pg MCHC 32.3 (32.0-36.0) g/dL RDW 13.3 (12.0-15.0) % Plt Count 237 (130-450) 10^3/uL MPV 9.3 (7.9-10.8) fL Neut # (Auto) Not Reportable Lymph # (Auto) Not Reportable [place] # (Auto) Not Reportable Eos # (Auto) Not Reportable Baso # (Auto) Not Reportable Absolute Nucleated RBC Not Reportable Total Counted 100 Band Neuts % (Manual) 2 (0 - 10) % Abnorm Lymph % (Manual) 0 % Nucleated RBC % Not Reportable Neutrophils # (Manual) 21.8 H (1.5-6.6) 10^3/uL Lymphocytes # (Manual) 0.7 L (1.5-3.5) 10^3/uL Monocytes # (Manual) 0.7 (0.0-1.0) 10^3/uL Eosinophils # (Manual) 0.0 (0-0.7) 10^3/uL Basophils # (Manual) 0.0 (0-0.1) 10^3/uL Differential Comment MANUAL DIFFERENTIAL WBC Morphology NORMAL APPEARANCE (NORMAL) Platelet Estimate NORMAL (130-450,000) (NORMAL) Platelet Morphology NORMAL APPEARANCE (NORMAL) RBC Morph Micro Appear NORMAL APPEARANCE (NORMAL) VBG pH (7.31-7.41) Ionized Calcium (1.15-1.33) mmol/L Sodium (135-145) mmol/L Potassium (3.5-5.0) mmol/L Chloride (101-111) mmol/L Carbon Dioxide (21-32) mmol/L Anion Gap (6-13) BUN (6-20) mg/dL Creatinine (0.4-1.0) mg/dL Estimated GFR (MDRD) (>89) Glucose (70-100) mg/dL Estimat Average Glucose (70-100) mg/dL Hemoglobin A1c % (4.27-6.07) % Lactic Acid 1.2 (0.5-2.2) mmol/L Calcium (8.5-10.3) mg/dL Phosphorus (2.5-4.6) mg/dL Magnesium (1.7-2.8) mg/dL Total Bilirubin (0.2-1.0) mg/dL AST (10-42) IU/L ALT (10-60) IU/L Alkaline Phosphatase (42-121) IU/L Total Protein (6.7-8.2) g/dL Albumin (3.2-5.5) g/dL Globulin (2.1-4.2) g/dL Albumin/Globulin Ratio (1.0-2.2) Lipase (22-51) U/L Urine Color Urine Clarity (CLEAR) Urine pH (5.0-7.5) PH Ur Specific [place] (1.002-1.030) Urine Protein (NEGATIVE) mg/dL Urine Glucose (UA) (NEGATIVE) mg/dL Urine Ketones (NEGATIVE) mg/dL Urine Occult Blood (NEGATIVE) Urine Nitrite (NEGATIVE) Urine Bilirubin (NEGATIVE) Urine Urobilinogen (NORMAL) E.U./dL Ur Leukocyte Esterase (NEGATIVE) Urine RBC (0-5) /HPF Urine WBC (0-5) /HPF Ur Squamous Epith Cells (<= Few) Urine Bacteria (None Seen) /HPF Urine Mucus Ur Microscopic Review Urine Culture Comments Urine HCG, Qual Nasal Adenovirus (PCR) Nasal B. parapertussis DNA (PCR) Nasal Coronavir 229E PCR Nasal Coronavir HKU1 PCR Nasal Coronavir NL63 PCR Nasal Coronavir OC43 PCR Nasal Enterovir/Rhinovir PCR Nasal Influenza B PCR Nasal Influenza A PCR Nasal Parainfluen 1 PCR Nasal Parainfluen 2 PCR Nasal Parainfluen 3 PCR Nasal Parainfluen 4 PCR Nasal RSV (PCR) Nasal Screen MRSA (PCR) NEGATIVE (NEGATIVE) Nasal B.pertussis DNA PCR Nasal C.pneumoniae (PCR) Cristobal Human Metapneumo PCR Nasal M.pneumoniae (PCR) Nasal SARS-CoV-2 (PCR) Urine Opiates Screen (NEGATIVE) Ur Oxycodone Screen (NEGATIVE) Urine Methadone Screen (NEGATIVE) Ur Propoxyphene Screen (NEGATIVE) Ur Barbiturates Screen (NEGATIVE) Ur Tricyclics Screen (NEGATIVE) Ur Phencyclidine Scrn (NEGATIVE) Ur Amphetamine Screen (NEGATIVE) U Methamphetamines Scrn (NEGATIVE) U Benzodiazepines Scrn (NEGATIVE) Urine Cocaine Screen (NEGATIVE) U Cannabinoids Screen (NEGATIVE) Group A Strep Rapid (Negative) 02/13/22 02/13/22 02/13/22 Range/Units 17:23 17:23 16:45 WBC (4.8-10.8) x10^3/uL RBC (4.20-5.40) 10^6/uL Hgb (12.0-16.0) g/dL Hct (37.0-47.0) % MCV (81.0-99.0) fL MCH (27.0-31.0) pg MCHC (32.0-36.0) g/dL RDW (12.0-15.0) % Plt Count (130-450) 10^3/uL MPV (7.9-10.8) fL Neut # (Auto) Lymph # (Auto) [place] # (Auto) Eos # (Auto) Baso # (Auto) Absolute Nucleated RBC Total Counted Band Neuts % (Manual) (0 - 10) % Abnorm Lymph % (Manual) % Nucleated RBC % Neutrophils # (Manual) (1.5-6.6) 10^3/uL Lymphocytes # (Manual) (1.5-3.5) 10^3/uL Monocytes # (Manual) (0.0-1.0) 10^3/uL Eosinophils # (Manual) (0-0.7) 10^3/uL Basophils # (Manual) (0-0.1) 10^3/uL Differential Comment WBC Morphology (NORMAL) Platelet Estimate (NORMAL) Platelet Morphology (NORMAL) RBC Morph Micro Appear (NORMAL) VBG pH (7.31-7.41) Ionized Calcium (1.15-1.33) mmol/L Sodium (135-145) mmol/L Potassium (3.5-5.0) mmol/L Chloride (101-111) mmol/L Carbon Dioxide (21-32) mmol/L Anion Gap (6-13) BUN (6-20) mg/dL Creatinine (0.4-1.0) mg/dL Estimated GFR (MDRD) (>89) Glucose (70-100) mg/dL Estimat Average Glucose (70-100) mg/dL Hemoglobin A1c % (4.27-6.07) % Lactic Acid (0.5-2.2) mmol/L Calcium (8.5-10.3) mg/dL Phosphorus (2.5-4.6) mg/dL Magnesium (1.7-2.8) mg/dL Total Bilirubin (0.2-1.0) mg/dL AST (10-42) IU/L ALT (10-60) IU/L Alkaline Phosphatase (42-121) IU/L Total Protein (6.7-8.2) g/dL Albumin (3.2-5.5) g/dL Globulin (2.1-4.2) g/dL Albumin/Globulin Ratio (1.0-2.2) Lipase (22-51) U/L Urine Color STRAW YELLOW Urine Clarity CLEAR HAZY (CLEAR) Urine pH 6.0 5.5 (5.0-7.5) PH Ur Specific [place] <=1.005 1.025 (1.002-1.030) Urine Protein NEGATIVE NEGATIVE (NEGATIVE) mg/dL Urine Glucose (UA) NEGATIVE 500 H (NEGATIVE) mg/dL Urine Ketones NEGATIVE 40 H (NEGATIVE) mg/dL Urine Occult Blood NEGATIVE TRACE-INTA (NEGATIVE) Urine Nitrite NEGATIVE NEGATIVE (NEGATIVE) Urine Bilirubin NEGATIVE NEGATIVE (NEGATIVE) Urine Urobilinogen 0.2 (NORMAL) 0.2 (NORMAL) (NORMAL) E.U./dL Ur Leukocyte Esterase TRACE H NEGATIVE (NEGATIVE) Urine RBC None Seen 0-5 (0-5) /HPF Urine WBC 6-10 H 11-25 H (0-5) /HPF Ur Squamous Epith Cells NONE SEEN MOD Squamous H (<= Few) Urine Bacteria Rare Few (None Seen) /HPF Urine Mucus Moderate Strands Ur Microscopic Review INDICATED Urine Culture Comments INDICATED NOT INDICATED Urine HCG, Qual NEGATIVE Nasal Adenovirus (PCR) Nasal B. parapertussis DNA (PCR) Nasal Coronavir 229E PCR Nasal Coronavir HKU1 PCR Nasal Coronavir NL63 PCR Nasal Coronavir OC43 PCR Nasal Enterovir/Rhinovir PCR Nasal Influenza B PCR Nasal Influenza A PCR Nasal Parainfluen 1 PCR Nasal Parainfluen 2 PCR Nasal Parainfluen 3 PCR Nasal Parainfluen 4 PCR Nasal RSV (PCR) Nasal Screen MRSA (PCR) (NEGATIVE) Nasal B.pertussis DNA PCR Nasal C.pneumoniae (PCR) Cristobal Human Metapneumo PCR Nasal M.pneumoniae (PCR) Nasal SARS-CoV-2 (PCR) Urine Opiates Screen NEGATIVE (NEGATIVE) Ur Oxycodone Screen NEGATIVE (NEGATIVE) Urine Methadone Screen NEGATIVE (NEGATIVE) Ur Propoxyphene Screen NEGATIVE (NEGATIVE) Ur Barbiturates Screen NEGATIVE (NEGATIVE) Ur Tricyclics Screen NEGATIVE (NEGATIVE) Ur Phencyclidine Scrn NEGATIVE (NEGATIVE) Ur Amphetamine Screen POSITIVE H (NEGATIVE) U Methamphetamines Scrn NEGATIVE (NEGATIVE) U Benzodiazepines Scrn NEGATIVE (NEGATIVE) Urine Cocaine Screen NEGATIVE (NEGATIVE) U Cannabinoids Screen NEGATIVE (NEGATIVE) Group A Strep Rapid (Negative) 02/13/22 02/13/22 02/13/22 Range/Units 16:26 15:50 15:50 WBC (4.8-10.8) x10^3/uL RBC (4.20-5.40) 10^6/uL Hgb (12.0-16.0) g/dL Hct (37.0-47.0) % MCV (81.0-99.0) fL MCH (27.0-31.0) pg MCHC (32.0-36.0) g/dL RDW (12.0-15.0) % Plt Count (130-450) 10^3/uL MPV (7.9-10.8) fL Neut # (Auto) Lymph # (Auto) [place] # (Auto) Eos # (Auto) Baso # (Auto) Absolute Nucleated RBC Total Counted Band Neuts % (Manual) (0 - 10) % Abnorm Lymph % (Manual) % Nucleated RBC % Neutrophils # (Manual) (1.5-6.6) 10^3/uL Lymphocytes # (Manual) (1.5-3.5) 10^3/uL Monocytes # (Manual) (0.0-1.0) 10^3/uL Eosinophils # (Manual) (0-0.7) 10^3/uL Basophils # (Manual) (0-0.1) 10^3/uL Differential Comment WBC Morphology (NORMAL) Platelet Estimate (NORMAL) Platelet Morphology (NORMAL) RBC Morph Micro Appear (NORMAL) VBG pH (7.31-7.41) Ionized Calcium (1.15-1.33) mmol/L Sodium 128 L (135-145) mmol/L Potassium 3.2 L (3.5-5.0) mmol/L Chloride 100 L (101-111) mmol/L Carbon Dioxide 20 L (21-32) mmol/L Anion Gap 8.0 (6-13) BUN 9 (6-20) mg/dL Creatinine 0.6 (0.4-1.0) mg/dL Estimated GFR (MDRD) 118 (>89) Glucose 150 H (70-100) mg/dL Estimat Average Glucose (70-100) mg/dL Hemoglobin A1c % (4.27-6.07) % Lactic Acid (0.5-2.2) mmol/L Calcium 8.3 L (8.5-10.3) mg/dL Phosphorus (2.5-4.6) mg/dL Magnesium (1.7-2.8) mg/dL Total Bilirubin 0.5 (0.2-1.0) mg/dL AST 18 (10-42) IU/L ALT 13 (10-60) IU/L Alkaline Phosphatase 29 L (42-121) IU/L Total Protein 6.2 L (6.7-8.2) g/dL Albumin 3.5 (3.2-5.5) g/dL Globulin 2.7 (2.1-4.2) g/dL Albumin/Globulin Ratio 1.3 (1.0-2.2) Lipase 25 (22-51) U/L Urine Color Urine Clarity (CLEAR) Urine pH (5.0-7.5) PH Ur Specific [place] (1.002-1.030) Urine Protein (NEGATIVE) mg/dL Urine Glucose (UA) (NEGATIVE) mg/dL Urine Ketones (NEGATIVE) mg/dL Urine Occult Blood (NEGATIVE) Urine Nitrite (NEGATIVE) Urine Bilirubin (NEGATIVE) Urine Urobilinogen (NORMAL) E.U./dL Ur Leukocyte Esterase (NEGATIVE) Urine RBC (0-5) /HPF Urine WBC (0-5) /HPF Ur Squamous Epith Cells (<= Few) Urine Bacteria (None Seen) /HPF Urine Mucus Ur Microscopic Review Urine Culture Comments Urine HCG, Qual Nasal Adenovirus (PCR) NOT DETECTED Nasal B. parapertussis DNA (PCR) NOT DETECTED Nasal Coronavir 229E PCR NOT DETECTED Nasal Coronavir HKU1 PCR NOT DETECTED Nasal Coronavir NL63 PCR NOT DETECTED Nasal Coronavir OC43 PCR NOT DETECTED Nasal Enterovir/Rhinovir PCR NOT DETECTED Nasal Influenza B PCR NOT DETECTED Nasal Influenza A PCR NOT DETECTED Nasal Parainfluen 1 PCR NOT DETECTED Nasal Parainfluen 2 PCR NOT DETECTED Nasal Parainfluen 3 PCR NOT DETECTED Nasal Parainfluen 4 PCR NOT DETECTED Nasal RSV (PCR) NOT DETECTED Nasal Screen MRSA (PCR) (NEGATIVE) Nasal B.pertussis DNA PCR NOT DETECTED Nasal C.pneumoniae (PCR) NOT DETECTED Cristobal Human Metapneumo PCR NOT DETECTED Nasal M.pneumoniae (PCR) NOT DETECTED Nasal SARS-CoV-2 (PCR) NOT DETECTED Urine Opiates Screen (NEGATIVE) Ur Oxycodone Screen (NEGATIVE) Urine Methadone Screen (NEGATIVE) Ur Propoxyphene Screen (NEGATIVE) Ur Barbiturates Screen (NEGATIVE) Ur Tricyclics Screen (NEGATIVE) Ur Phencyclidine Scrn (NEGATIVE) Ur Amphetamine Screen (NEGATIVE) U Methamphetamines Scrn (NEGATIVE) U Benzodiazepines Scrn (NEGATIVE) Urine Cocaine Screen (NEGATIVE) U Cannabinoids Screen (NEGATIVE) Group A Strep Rapid Negative (Negative) 02/13/22 02/13/22 Range/Units 15:50 15:50 WBC 20.2 H (4.8-10.8) x10^3/uL RBC 3.85 L (4.20-5.40) 10^6/uL Hgb 12.1 (12.0-16.0) g/dL Hct 37.0 (37.0-47.0) % MCV 96.1 (81.0-99.0) fL MCH 31.4 H (27.0-31.0) pg MCHC 32.7 (32.0-36.0) g/dL RDW 14.3 (12.0-15.0) % Plt Count 245 (130-450) 10^3/uL MPV 9.0 (7.9-10.8) fL Neut # (Auto) Not Reportable Lymph # (Auto) Not Reportable [place] # (Auto) Not Reportable Eos # (Auto) Not Reportable Baso # (Auto) Not Reportable Absolute Nucleated RBC Not Reportable Total Counted 100 Band Neuts % (Manual) 6 (0 - 10) % Abnorm Lymph % (Manual) 0 % Nucleated RBC % Not Reportable Neutrophils # (Manual) 19.4 H (1.5-6.6) 10^3/uL Lymphocytes # (Manual) 0.4 L (1.5-3.5) 10^3/uL Monocytes # (Manual) 0.4 (0.0-1.0) 10^3/uL Eosinophils # (Manual) 0.0 (0-0.7) 10^3/uL Basophils # (Manual) 0.0 (0-0.1) 10^3/uL Differential Comment MANUAL DIFFERENTIAL WBC Morphology NORMAL APPEARANCE (NORMAL) Platelet Estimate NORMAL (130-450,000) (NORMAL) Platelet Morphology NORMAL APPEARANCE (NORMAL) RBC Morph Micro Appear NORMAL APPEARANCE (NORMAL) VBG pH (7.31-7.41) Ionized Calcium (1.15-1.33) mmol/L Sodium (135-145) mmol/L Potassium (3.5-5.0) mmol/L Chloride (101-111) mmol/L Carbon Dioxide (21-32) mmol/L Anion Gap (6-13) BUN (6-20) mg/dL Creatinine (0.4-1.0) mg/dL Estimated GFR (MDRD) (>89) Glucose (70-100) mg/dL Estimat Average Glucose (70-100) mg/dL Hemoglobin A1c % (4.27-6.07) % Lactic Acid 2.7 H (0.5-2.2) mmol/L Calcium (8.5-10.3) mg/dL Phosphorus (2.5-4.6) mg/dL Magnesium (1.7-2.8) mg/dL Total Bilirubin (0.2-1.0) mg/dL AST (10-42) IU/L ALT (10-60) IU/L Alkaline Phosphatase (42-121) IU/L Total Protein (6.7-8.2) g/dL Albumin (3.2-5.5) g/dL Globulin (2.1-4.2) g/dL Albumin/Globulin Ratio (1.0-2.2) Lipase (22-51) U/L Urine Color Urine Clarity (CLEAR) Urine pH (5.0-7.5) PH Ur Specific [place] (1.002-1.030) Urine Protein (NEGATIVE) mg/dL Urine Glucose (UA) (NEGATIVE) mg/dL Urine Ketones (NEGATIVE) mg/dL Urine Occult Blood (NEGATIVE) Urine Nitrite (NEGATIVE) Urine Bilirubin (NEGATIVE) Urine Urobilinogen (NORMAL) E.U./dL Ur Leukocyte Esterase (NEGATIVE) Urine RBC (0-5) /HPF Urine WBC (0-5) /HPF Ur Squamous Epith Cells (<= Few) Urine Bacteria (None Seen) /HPF Urine Mucus Ur Microscopic Review Urine Culture Comments Urine HCG, Qual Nasal Adenovirus (PCR) Nasal B. parapertussis DNA (PCR) Nasal Coronavir 229E PCR Nasal Coronavir HKU1 PCR Nasal Coronavir NL63 PCR Nasal Coronavir OC43 PCR Nasal Enterovir/Rhinovir PCR Nasal Influenza B PCR Nasal Influenza A PCR Nasal Parainfluen 1 PCR Nasal Parainfluen 2 PCR Nasal Parainfluen 3 PCR Nasal Parainfluen 4 PCR Nasal RSV (PCR) Nasal Screen MRSA (PCR) (NEGATIVE) Nasal B.pertussis DNA PCR Nasal C.pneumoniae (PCR) Cristobal Human Metapneumo PCR Nasal M.pneumoniae (PCR) Nasal SARS-CoV-2 (PCR) Urine Opiates Screen (NEGATIVE) Ur Oxycodone Screen (NEGATIVE) Urine Methadone Screen (NEGATIVE) Ur Propoxyphene Screen (NEGATIVE) Ur Barbiturates Screen (NEGATIVE) Ur Tricyclics Screen (NEGATIVE) Ur Phencyclidine Scrn (NEGATIVE) Ur Amphetamine Screen (NEGATIVE) U Methamphetamines Scrn (NEGATIVE) U Benzodiazepines Scrn (NEGATIVE) Urine Cocaine Screen (NEGATIVE) U Cannabinoids Screen (NEGATIVE) Group A Strep Rapid (Negative) ABX Reporting Has patient been on IV antibiotics over the past 48 hours?: Yes Sepsis Event Note (H) - Evaluation Current Stage of Sepsis: Sepsis Possible source of Sepsis: positive: Pulmonary, Genitourinary - Sepsis Criteria Sepsis Criteria: Recorded Temperature greater than 38.3C or Less than 36C, Recorded Heart Rate greater than 90 bpm, Recorded Respiratory Rate greater than 20, WBC count greater than 12,000 or less than 4000, Metabolic: lactate > 2 mmol/L Assessment/Plan - Problem List (1) Sepsis Impression: The concern was for sepsis likely due to pneumonia or a urinary tract infection. She has now afebrile and her lactic acidosis has resolved. Her blood pressure has remained stable. Her white blood cell count is increased today but is likely due to the steroids she received yesterday. We will keep her on the ceftriaxone azithromycin which will cover for pneumonia and UTI. Blood cultures are pending but suspect these will likely be negative. Recheck CBC in the morning. Suspect she can likely be discharged home in the morning as long as she continues to improve. We will transfer out of the ICU today. (2) Left lower lobe pneumonia Impression: Concerns for a left-sided infiltrate which was present on the CT the abdomen pelvis but not on the chest x-ray. This may happen to be atelectasis but given her initial complaints, and pneumonia is most definitely possible and this could be causing her referred pain. We will keep her on ceftriaxone and azithromycin with today being day 2. Qualifiers: Pneumonia type: due to unspecified organism Qualified Code(s): J18.9 - Pneumonia, unspecified organism (3) Urinary tract infection Impression: She may potentially still have a urinary tract infection especially given she has dysuria. Initial urinalysis was a dirty catch but the repeat revealed trace leukocyte Estrace and 6-10 WBCs as well as rare bacteria. Although it is not the most impressive urinalysis, this may potentially still cause infection. She remains on ceftriaxone and we will follow-up urine culture. If she continues to improve then she can likely be discharged in the morning. Qualifiers: Urinary tract infection type: acute cystitis Hematuria presence: without hematuria Qualified Code(s): N30.00 - Acute cystitis without hematuria (4) Hyponatremia Impression: This is resolved.
[2022-02-14] MEDS: DOCUSATE SODIUM 250 MG CAPSULE PO SCH (21:11)
[2022-02-14] MEDS: SENNA 8.6 MG TABLET PO SCH (21:11)
[2022-02-14] MEDS: PHENAZOPYRIDINE 100 MG TABLET PO SCH (21:11)
[2022-02-14] MEDS: ACETAMINOPHEN 325 MG TABLET PO PRN (21:12)
[2022-02-14] MEDS ORDERED: PHENAZOPYRIDINE 100 MG TABLET PO SCH (22:00)
[2022-02-15] MEDS: SODIUM CHLORIDE FLUSH 0.9% 10 ML SYRINGE IVP SCH ×2 (00:03→08:45)
[2022-02-15 05:10] LABS: BASOPHILS % (AUTO) 0.2 %; EOSINOPHILS # (AUTO) 0.1 10^3/uL (0.0-0.7); EOSINOPHILS % (AUTO) 0.5 %; HCT - HEMATOCRIT 31.4 % (37.0-47.0); LYMPHOCYTES # (AUTO) 2.8 10^3/uL (1.5-3.5); LYMPHOCYTES % (AUTO) 23.9 %; MEAN CORPUSCULAR HGB CONC 31.8 g/dL (32.0-36.0); MEAN CORPUSCULAR VOLUME 97.2 fL (81.0-99.0); MEAN PLATELET VOLUME 9.4 fL (7.9-10.8); MONOCYTES # (AUTO) 0.9 10^3/uL (0.0-1.0); MONOCYTES % (AUTO) 7.2 %; NEUTROPHILS % (AUTO) 67.9 %; PLT - PLATELET COUNT 224 10^3/uL (130-450); RED BLOOD COUNT 3.23 10^6/uL (4.20-5.40); RED CELL DISTRIBUTION WIDTH 13.7 % (12.0-15.0); WHITE BLOOD COUNT 11.8 x10^3/uL (4.8-10.8)
[2022-02-15 05:21] LABS: CALCIUM 8.4 mg/dL (8.5-10.3); CREATININE 0.6 mg/dL (0.4-1.0); POTASSIUM 3.9 mmol/L (3.5-5.0)
[2022-02-15] MEDS: PHENAZOPYRIDINE 100 MG TABLET PO SCH (06:04)
[2022-02-15] MEDS: cefTRIAXone 2 GM in SODIUM CHLORIDE 0.9% MINIBAG 100 ML IV SCH (08:45)
[2022-02-15] MEDS ORDERED: DEXTROAMPHETAMINE PO SCH (09:00)
[2022-02-15] MEDS ORDERED: AMPHETAMINE PO SCH (09:00)
[2022-02-15] MEDS: AZITHROMYCIN INJ 500 MG in SODIUM CHLORIDE 0.9% 250 ML IV SCH (10:05)
[2022-02-15] MEDS: ENOXAPARIN 40 MG/0.4 ML SYRINGE SUBQ SCH (10:15)
[2022-02-15] MEDS: polyethylene glycoL 3350 17 GM PACKET PO SCH (10:16)
[2022-02-15] MEDS: DOCUSATE SODIUM 250 MG CAPSULE PO SCH (10:16)
[2022-02-15] MEDS: SENNA 8.6 MG TABLET PO SCH (10:26)
[2022-02-15] MEDS: ACETAMINOPHEN 325 MG TABLET PO PRN (10:29)
[2022-02-15 10:47] LABS: MAGNESIUM 2.3 mg/dL (1.7-2.8)
--- NOTE | 2022-02-15 12:06 | DISCHARGE SUMMARY ---
Discharge Summary Admit Date: 02/13/22 Discharge Date: 02/15/22 Discharging Provider: Dr Priya Caceres Primary Care Provider: None Code Status: Attempt Resuscitation Condition at Discharge: Stable Discharge Disposition: 01 Home, Self Care - [facility] History of Present Illness: From the admission H&P of Dr. Sharon Rogers: This is a 31-year-old white female who has no major medical illnesses except ADHD. She drinks 2 bottles of wine a day (or possibly a week) and vapes occasionally. 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 She works "all the time". But she tries to eat right and exercise. She has ADHD with some anxiety and is in therapy for that. She says that she has allergies and when she moved to the [place] in October 2020 she was diagnosed as having "jogger's asthma". She will get a runny nose, postnasal drip, and a cough. Yesterday, she felt very fatigued. She had a sore throat and thought that she had recurrence of her allergies. This morning she woke up with diffuse body aches that were severe. She developed a dry, nonproductive cough. Her lungs felt like "they were on fire." Fevers were present.. She denies eustachian tube dysfunction, ear pain, exudate. There was tremendous pain in her C spine that radiated down her left arm and made her left arm numb. Sometimes the pain would radiate down to the shoulder and then to the front of her left upper chest around her clavicle. She was miserable with the diffuse aches. She denies urgency, frequency. She says that she gets occasional urinary tract infections and has no symptoms of that. She finally drove her self to the emergency room when the left neck and left arm pain became unbearable. She had taken some Tylenol and there is no relief of the pain or the fever. Every time she tried to lay back the pain in her neck was excruciating. When she was in the emergency room she was crying with the pain. Temperature was 38.4. Heart rate 117. Blood pressure 140/81. Respirations 26. 98% on room air. She scored her pain at a 10 out of a 10. On examination the emergency room doctor noted her to be febrile, tachycardic, tachypneic, anxious, frustrated. There was erythema of the posterior pharynx. No meningeal signs. No mention of her lung exam. Cardiac exam was negative other than tachycardia to 110. Sodium was 128. Potassium 3.2. Chloride 100. Carbon dioxide 20. BUN and creatinine were normal. Glucose 150. Lactic acid 2.7. White cell count 20.2 thousand. Hemoglobin 12.1. Urinalysis had squamous cells and has to be repeated. She had glucosuria, ketonuria, white cells, a few bacteria and was leukocyte esterase negative and nitrite negative. PCR was negative for COVID. Group A rapid strep was negative. Chest x-ray was normal without any acute cardiopulmonary process. A CT of abdomen and pelvis was done to make sure that she had no urinary sepsis and she had hepatomegaly noted. She had a small to moderate size airspace opacity in the left infrahilar lung region. Bowels are normal. Bladder was normal. Constipation seen. Treatment in the emergency room consisted of fluids, empiric antibiotic therapy in the face of someone who has sepsis criteria. She is also received morphine. Her tachycardia has gotten better. Fever is gone and she has a temp of 37.2. Blood pressure came down to 104 and then is bounced back up to 122. Respirations are down to 13. Lactic acid is normal. She is being admitted to the ICU for managing sepsis from a pneumonia and possibly a UTI. - HOSPITAL COURSE Hospital Course: (1) Sepsis She was put on iv fluids plus empiric azithromycin and ceftriaxone and her lactic acid and tachycardia normalized the following day. She defervesced and WBC slowly improved. (2) Left lower lobe pneumonia She had left-sided chest pain with inspiration. She made no sputum. Her rapid Strep test was neg. Her blood cultures were neg to date. She received 3 days of empiric azithromycin and ceftriaxone. She was discharged to take several more days of oral Levaquin plus a probiotic. (3) Hyperglycemia She does not have a history of diabetes and did not receive D5 in the emergency room. There is a family history of DM. Her HbA1c was 5.0 and a fasting glucose in the morning was 97. (4) Hypokalemia She received potassium replacement for correction. (5) Hyponatremia This was also consistent with her alcohol abuse. She was put on NS and the serum sodium corrected the following day. (6) Radiculopathy of cervical spine History was suggestive of radiculopathy and exam was negative for any severe compression. This L sided neck pain is new for her. In the face of sepsis, to make sure she did not have a C-spine infection, she had a C-spine CT which was neg. Her rapid Strep test was neg. She needed pain meds. On the day of discharge, the neck pain was on the R side, suggesting muscular etiology. (7) Alcohol abuse She had hepatomegaly seen on CT abdomen a well as hyponatremia. Liver enzymes were normal. She did not go through alcohol withdrawal. She was put on daily Thiamine and Folate. We encouraged the patient to stop drinking completely, and she said this "was a wake up call" to stop drinking. She was seen by Social Work and provided resources. (8) ADHD She was kept on her Adderall while here. (9) Anxiety Patient states that she has ADHD, but some of her symptoms are insomnia and excessive worry, may be due to a generalized anxiety disorder. She was also anxious about her health right now. She was self-medicating with alcohol and vaping. She was seen by Social Work, advised to continue seeing a counselr and provided resources. - ALLERGIES Allergies/Adverse Reactions: Allergies Allergy/AdvReac Type Severity Reaction Status Date / Time No Known Drug Allergies Allergy Verified 02/13/22 15:36 - MEDICATIONS Home Medications: Ambulatory Orders Medication Instructions Recorded Confirmed Dextroamphetamine/Amphetamine 10 mg PO DAILY 02/14/22 02/14/22 [Adderall Xr 10 mg Capsule] Saccharomyces Boulardii [Florastor] 250 mg PO BIDWM #4 cap 02/15/22 levoFLOXacin [Levaquin] 750 mg PO DAILY #6 tablet 02/15/22 - PHYSICAL EXAM AT DISCHARGE General Appearance: positive: No acute distress, Alert Eyes Bilateral: positive: Normal inspection, EOMI ENT: positive: ENT inspection nml, No signs of dehydration Neck: positive: Nml inspection, No JVD Respiratory: positive: No respiratory distress, Breath sounds nml Cardiovascular: positive: Regular rate & rhythm, No murmur, Gallop/S4 (at LLSB) Abdomen: positive: Non-tender, Nml bowel sounds, No distention Skin: positive: No rash, Warm, Dry Extremities: positive: Non-tender, No pedal edema Neurologic/Psychiatric: positive: Oriented x3 (Non-focal) - LABS Result Diagrams: 02/15/22 04:08 02/15/22 04:08 - DIAGNOSTIC IMAGING Diagnostic Imaging Results: Final report reviewed - SEPSIS Current Stage of Sepsis: Sepsis Possible source of Sepsis: Pulmonary, Genitourinary Sepsis Criteria: Recorded Temperature greater than 38.3C or Less than 36C, Recorded Heart Rate greater than 90 bpm, Recorded Respiratory Rate greater than 20, WBC count greater than 12,000 or less than 4000, Metabolic: lactate > 2 mmol/L - FOLLOW UP Follow Up: See PCP for a hospital follow-up visit in the next 1-2 weeks. - TIME SPENT Time Spent in Discharge (Minutes): 45
--- NOTE | 2022-02-15 12:10 | Discharge Plan ---
Discharge Plan Problem Reviewed?: Yes Disposition: Home, Self Care Condition: Stable Prescriptions: Saccharomyces Boulardii [Florastor] 250 mg PO BIDWM #4 cap levoFLOXacin [Levaquin] 750 mg PO DAILY #6 tablet Diet: Regular Activity Restrictions: Activity as Tolerated Shower Restrictions: No Driving Restrictions: No Instruction Topics: Pneumonia Tx, ED Alcohol Abuse Health Concerns: You were hospitalized because of sepsis from a community-acquired pneumonia and a urinary tract infection. You received fluids and IV antibiotics. You are being discharged home to take several more days of oral antibiotics plus probiotics. The new prescriptions were electronically sent to your [facility] pharmacy in [place]. Stay well-hydrated and rest to recover your energy. It is normal to feel tired after being through an infection causing sepsis like you had. You may resume your Adderall and any other usual medications that you took pre- hospitalization. Decreasing alcohol intake or abstinence is also advised. Our [facility] saw you for this and gave you resources. Plan of Treatment: As above. Care Goals: Improvement in symptoms and stabilization are the goals. Assessment: The patient understands and is agreeable with the plan. Additional Instructions or Follow Up instructions: If you have new or worsening symptoms, call your PCP for advice or come to the Emergency Department. No Smoking: If you smoke, Please STOP! Call for help.
[2022-02-15 13:34] VITALS: BP 117/74
[2022-02-15] MEDS ORDERED: SENNA 8.6 MG TABLET PO SCH (21:00)
[2022-02-15] MEDS ORDERED: DOCUSATE SODIUM 250 MG CAPSULE PO SCH (21:00)
== END 2022-02-15 13:50 | disposition home or self-care (01) | DRG 871 ==
LOC: ED 15:25 → ICU 18:09
PROVIDERS: ADMIT Specialist; ATTEND Internal Medicine
DX: A41.9 Sepsis, unspecified organism (principal); J18.9 Pneumonia, unspecified organism; N30.00 Acute cystitis without hematuria; E87.1 Hypo-osmolality and hyponatremia; R73.9 Hyperglycemia, unspecified; E87.6 Hypokalemia; M54.12 Radiculopathy, cervical region; F90.9 Attention-deficit hyperactivity disorder, unspecified type; F41.9 Anxiety disorder, unspecified; F10.10 Alcohol abuse, uncomplicated; J45.998 Other asthma; Z20.822 Contact with and (suspected) exposure to COVID-19; G47.00 Insomnia, unspecified; Z79.899 Other long term (current) drug therapy
CPT/HCPCS: 36415; 71045; 72125; 74176; 80048; 80053; 80306; 81001; 81025; 82330; 83036; 83605; 83690; 83735; 84100; 85025; 87040; 87070; 87086; 87150; 87430; 87633; 96365; 96375; 99283; 99285; A9270; J1170; J1650; Q0162; 81003

== ENCOUNTER 2023-02-03 09:42 | Emergency (ER) | payer MEDICAID ==
--- NOTE | 2023-02-03 10:22 | ED Physician Documentation ---
PD HPI DYSPNEA - Stated complaint Stated Complaint: SOA,CHEST TIGHTNESS - Chief complaint Chief Complaint: Resp - History obtained from History obtained from: Patient - History of Present Illness Timing - onset: How many weeks ago (1-2) Timing - onset during: Light activity Timing - duration: Weeks Timing - details: Gradual onset, Still present Inciting event(s): No: Out of meds, URI (no noted URI symptoms per se. Has had a month or so of dyspnea and fatigue. Seen by PCP and Rx with Albuterol MDI with some mild improvement but not consistent.), Allergic rxn/anaphylaxis Improved by: Rest Worsened by: Exertion, Laying flat Associated symptoms: Wheezing. No: Fever, Cough, Chest pain / discomfort, Palpitations, Bilateral edema Similar symptoms before: No diagnosis Recently seen: Clinic Review of Systems Constitutional: reports: Fatigue. denies: Fever, Chills, Myalgias Nose: denies: Rhinorrhea / runny nose, Congestion Throat: denies: Sore throat Cardiac: reports: Chest pain / pressure. denies: Palpitations, Pedal edema, Calf pain Respiratory: reports: Dyspnea, Wheezing. denies: Cough GI: denies: Abdominal Pain, Nausea, Vomiting, Diarrhea Skin: denies: Rash, Lesions Musculoskeletal: denies: Extremity swelling Neurologic: reports: Generalized weakness. denies: Focal weakness, Numbness Endocrine: denies: Weight loss PD PAST MEDICAL HISTORY - Past Medical History Cardiovascular: None Respiratory: Asthma (From allergies.) Neuro: None Endocrine/Autoimmune: None GI: None SALES AND MARKETING ASSOCIATE: Other () : Other (intermittent cystitis) HEENT: Other (astigmatism) Psych: Anxiety, ADD/ADHD Musculoskeletal: None Derm: None - Present Medications Home Medications: Ambulatory Orders Medication Instructions Recorded Confirmed Dextroamphetamine/Amphetamine 10 mg PO DAILY 02/14/22 02/14/22 [Adderall Xr 10 mg Capsule] Saccharomyces Boulardii [Florastor] 250 mg PO BIDWM #4 cap 02/15/22 levoFLOXacin [Levaquin] 750 mg PO DAILY #6 tablet 02/15/22 Albuterol Sulf [Ventolin Hfa 1 - 2 puffs INH Q4HR PRN #1 each 02/03/23 Inhaler] - Allergies Allergies/Adverse Reactions: Allergies Allergy/AdvReac Type Severity Reaction Status Date / Time shellfish derived Allergy Edema Verified 02/03/23 09:57 - Social History Smoking Status: Current some day smoker - POLST Patient has POLST: No POLST Status: Full Code PD ED PE NORMAL - Vitals Vital signs reviewed: Yes - General General: Alert and oriented X 3, No acute distress, Well developed/nourished - HEENT HEENT: Moist mucous membranes, Pharynx benign - Neck Neck: Supple, no meningeal sign, No adenopathy - Cardiac Cardiac: RRR, No murmur, No rub - Respiratory Respiratory: No respiratory distress, Clear bilaterally - Abdomen Abdomen: Normal bowel sounds, Soft, Non tender, Non distended, No organomegaly - Derm Derm: Normal color, Warm and dry - Extremities Extremities: Normal ROM s pain, No edema, No calf tenderness / cord - Neuro Neuro: Alert and oriented X 3, No motor deficit, Normal speech Results - Vitals Vitals: Vital Signs - 24 hr 02/03/23 02/03/23 09:52 12:05 Temperature 36.4 C L Heart Rate 73 72 Respiratory 16 16 Rate Blood Pressure 143/64 H 128/74 O2 Saturation 100 100 Oxygen O2 Source Room air - EKG (time done) 11:06 EKG releavant findings:: EKG personally interpreted by author of this note. Relevant findings are: Rate: Rate (enter#) (54) Rhythm: Sinus bradycardia [place]: Normal Intervals: Normal SC Ischemia: Normal ST segments. No: ST elevation c/w ischemia, ST depression - Labs Labs: Laboratory Tests 02/03/23 02/03/23 02/03/23 10:58 10:58 10:58 WBC 6.0 RBC 4.03 L Hgb 12.5 Hct 37.6 MCV 93.3 MCH 31.0 MCHC 33.2 RDW 12.6 Plt Count 239 MPV 9.2 Neut # (Auto) 3.4 Lymph # (Auto) 1.9 [place] # (Auto) 0.5 Eos # (Auto) 0.1 Baso # (Auto) 0.0 Absolute Nucleated RBC 0.00 Nucleated RBC % 0.0 Sodium 137 Potassium 3.5 Chloride 99 L Carbon Dioxide 28 Anion Gap 10.0 BUN 14 Creatinine 0.6 Estimated GFR (MDRD) 117 Glucose 93 Lactic Acid Calcium 9.0 Magnesium 1.8 Total Bilirubin 0.6 AST 15 ALT 15 Alkaline Phosphatase 34 L B-Natriuretic Peptide 33 Total Protein 7.0 Albumin 4.0 Globulin 3.0 Albumin/Globulin Ratio 1.3 Lipase 31 TSH Urine Color Urine Clarity Urine pH Ur Specific [place] Urine Protein Urine Glucose (UA) Urine Ketones Urine Occult Blood Urine Nitrite Urine Bilirubin Urine Urobilinogen Ur Leukocyte Esterase Urine RBC Urine WBC Ur Squamous Epith Cells Urine Bacteria Ur Microscopic Review Urine Culture Comments Urine HCG, Qual Nasal Adenovirus (PCR) Nasal B. parapertussis DNA (PCR) Nasal Coronavir 229E PCR Nasal Coronavir HKU1 PCR Nasal Coronavir NL63 PCR Nasal Coronavir OC43 PCR Nasal Enterovir/Rhinovir PCR Nasal Influenza B PCR Nasal Influenza A PCR Nasal Parainfluen 1 PCR Nasal Parainfluen 2 PCR Nasal Parainfluen 3 PCR Nasal Parainfluen 4 PCR Nasal RSV (PCR) Nasal B.pertussis DNA PCR Nasal C.pneumoniae (PCR) Cristobal Human Metapneumo PCR Nasal M.pneumoniae (PCR) Nasal SARS-CoV-2 (PCR) Infectious [place] Assay 02/03/23 02/03/23 02/03/23 10:58 10:58 10:58 WBC RBC Hgb Hct MCV MCH MCHC RDW Plt Count MPV Neut # (Auto) Lymph # (Auto) [place] # (Auto) Eos # (Auto) Baso # (Auto) Absolute Nucleated RBC Nucleated RBC % Sodium Potassium Chloride Carbon Dioxide Anion Gap BUN Creatinine Estimated GFR (MDRD) Glucose Lactic Acid 1.0 Calcium Magnesium Total Bilirubin AST ALT Alkaline Phosphatase B-Natriuretic Peptide Total Protein Albumin Globulin Albumin/Globulin Ratio Lipase TSH 3.80 Urine Color Urine Clarity Urine pH Ur Specific [place] Urine Protein Urine Glucose (UA) Urine Ketones Urine Occult Blood Urine Nitrite Urine Bilirubin Urine Urobilinogen Ur Leukocyte Esterase Urine RBC Urine WBC Ur Squamous Epith Cells Urine Bacteria Ur Microscopic Review Urine Culture Comments Urine HCG, Qual Nasal Adenovirus (PCR) Nasal B. parapertussis DNA (PCR) Nasal Coronavir 229E PCR Nasal Coronavir HKU1 PCR Nasal Coronavir NL63 PCR Nasal Coronavir OC43 PCR Nasal Enterovir/Rhinovir PCR Nasal Influenza B PCR Nasal Influenza A PCR Nasal Parainfluen 1 PCR Nasal Parainfluen 2 PCR Nasal Parainfluen 3 PCR Nasal Parainfluen 4 PCR Nasal RSV (PCR) Nasal B.pertussis DNA PCR Nasal C.pneumoniae (PCR) Cristobal Human Metapneumo PCR Nasal M.pneumoniae (PCR) Nasal SARS-CoV-2 (PCR) Infectious [place] Assay NEGATIVE 02/03/23 02/03/23 10:58 10:58 WBC RBC Hgb Hct MCV MCH MCHC RDW Plt Count MPV Neut # (Auto) Lymph # (Auto) [place] # (Auto) Eos # (Auto) Baso # (Auto) Absolute Nucleated RBC Nucleated RBC % Sodium Potassium Chloride Carbon Dioxide Anion Gap BUN Creatinine Estimated GFR (MDRD) Glucose Lactic Acid Calcium Magnesium Total Bilirubin AST ALT Alkaline Phosphatase B-Natriuretic Peptide Total Protein Albumin Globulin Albumin/Globulin Ratio Lipase TSH Urine Color YELLOW Urine Clarity CLEAR Urine pH 7.0 Ur Specific [place] 1.010 Urine Protein NEGATIVE Urine Glucose (UA) NEGATIVE Urine Ketones NEGATIVE Urine Occult Blood NEGATIVE Urine Nitrite NEGATIVE Urine Bilirubin NEGATIVE Urine Urobilinogen 0.2 (NORMAL) Ur Leukocyte Esterase TRACE H Urine RBC None Seen Urine WBC 6-10 H Ur Squamous Epith Cells MOD Squamous H Urine Bacteria Rare Ur Microscopic Review INDICATED Urine Culture Comments NOT INDICATED Urine HCG, Qual NEGATIVE Nasal Adenovirus (PCR) NOT DETECTED Nasal B. parapertussis DNA (PCR) NOT DETECTED Nasal Coronavir 229E PCR NOT DETECTED Nasal Coronavir HKU1 PCR NOT DETECTED Nasal Coronavir NL63 PCR NOT DETECTED Nasal Coronavir OC43 PCR NOT DETECTED Nasal Enterovir/Rhinovir PCR NOT DETECTED Nasal Influenza B PCR NOT DETECTED Nasal Influenza A PCR NOT DETECTED Nasal Parainfluen 1 PCR NOT DETECTED Nasal Parainfluen 2 PCR NOT DETECTED Nasal Parainfluen 3 PCR NOT DETECTED Nasal Parainfluen 4 PCR NOT DETECTED Nasal RSV (PCR) NOT DETECTED Nasal B.pertussis DNA PCR NOT DETECTED Nasal C.pneumoniae (PCR) NOT DETECTED Cristobal Human Metapneumo PCR NOT DETECTED Nasal M.pneumoniae (PCR) NOT DETECTED Nasal SARS-CoV-2 (PCR) NOT DETECTED Infectious [place] Assay - Rads (name of study) chest xray Relevant Findings:: Prelim report reviewed, EMP independent interpretation of test (no acute process), See rad report PD Medical Decision Making - ED course Complexity details: reviewed results, considered differential (ordered fairly extensive workup for fatigue and dyspnea to include anemia thyroid disorder, CHF, pneumonia, electrolyte disorder, infectious such as mono/ pneumonia , and even . Testing here normal. ), d/w patient Departure - Departure Disposition: 01 Home, Self Care Clinical Impression: Dyspnea Qualifiers: Dyspnea type: unspecified Qualified Code(s): R06.00 - Dyspnea, unspecified Fatigue Qualifiers: Fatigue type: unspecified Qualified Code(s): R53.83 - Other fatigue Condition: Stable Record reviewed to determine appropriate education?: Yes Instructions: ED Dyspnea Shortness of Breath Follow-Up: TONY PRADO MD [Primary Care Provider] - Prescriptions: Albuterol Sulf [Ventolin Hfa Inhaler] 1 - 2 puffs INH Q4HR PRN #1 each PRN Reason: Shortness Of Air/Wheezing Comments: Right now your blood tests are looking good as is your chest x-ray. No signs of pneumonia, urinary tract infection, heart failure, thyroid disorder, electrolyte problems or kidney failure. Screening for significant infection, your white count is normal as is your lactate, so no signs of early sepsis or such. Your monotest is negative. Your viral respiratory panel results are not back yet but we can call you with any positive results or you can evaluate on the patient portal. At this point considerations would be a mild viral illness or postviral dyspnea and fatigue. Another even more likely consideration can be just seasonal allergies with environmental asthma. Stay well-hydrated. I would have you try an albuterol inhaler 2 puffs 3-4 times daily for the next several days and then as needed and see if that helps with your breathing and fatigue. Follow-up with your primary care if not improving well over the next 1-2 weeks. Return if worsening or other symptoms develop. I sent a prescription for the inhaler to [facility] in [place]. Discharge Date/Time: 02/03/23 12:07
[2023-02-03 11:08] LABS: BASOPHILS % (AUTO) 0.5 %; EOSINOPHILS # (AUTO) 0.1 10^3/uL (0.0-0.7); EOSINOPHILS % (AUTO) 1.7 %; HCT - HEMATOCRIT 37.6 % (37.0-47.0); HGB - HEMOGLOBIN 12.5 g/dL (12.0-16.0); LYMPHOCYTES # (AUTO) 1.9 10^3/uL (1.5-3.5); LYMPHOCYTES % (AUTO) 32.2 %; MEAN CORPUSCULAR HGB CONC 33.2 g/dL (32.0-36.0); MEAN CORPUSCULAR VOLUME 93.3 fL (81.0-99.0); MEAN PLATELET VOLUME 9.2 fL (7.9-10.8); MONOCYTES # (AUTO) 0.5 10^3/uL (0.0-1.0); NEUTROPHILS # (AUTO) 3.4 10^3/uL (1.5-6.6); NEUTROPHILS % (AUTO) 56.3 %; PLT - PLATELET COUNT 239 10^3/uL (130-450); RED BLOOD COUNT 4.03 10^6/uL (4.20-5.40); RED CELL DISTRIBUTION WIDTH 12.6 % (12.0-15.0)
[2023-02-03 11:11] LABS: BILIRUBIN,URINE NEGATIVE (NEGATIVE); CLARITY,URINE CLEAR (CLEAR); GLUCOSE, URINE (UA) NEGATIVE (NEGATIVE); KETONES,URINE (UA) NEGATIVE (NEGATIVE); LEUKOCYTE ESTERASE, URINE TRACE (NEGATIVE); NITRITE,URINE NEGATIVE (NEGATIVE); OCCULT BLOOD,URINE NEGATIVE (NEGATIVE); PROTEIN,URINE NEGATIVE (NEGATIVE); UROBILINOGEN,URINE 0.2 (NORMAL) E.U./dL (NORMAL)
[2023-02-03 11:13] LABS: HCG UR QUAL NEGATIVE
--- NOTE | 2023-02-03 11:13 | XRAY Report ---
PROCEDURE: Chest 1 View X-Ray INDICATIONS: dyspnea, cough TECHNIQUE: One view of the chest was acquired. COMPARISON: 02/13/2022 FINDINGS: Surgical changes and devices: None. Lungs and pleura: No pleural effusions or pneumothorax. Lungs are clear. Mediastinum: Mediastinal contours appear normal. Heart size is normal. Bones and chest wall: No suspicious bony lesions. Overlying soft tissues appear unremarkable. IMPRESSION: No acute cardiopulmonary process. Reviewed by: Konrad Singh MD on 02/03/2023 11:12 AM PDT Approved by: Konrad Singh MD on 02/03/2023 11:12 AM PDT Station ID: [id number]
[2023-02-03 11:14] LABS: INFECTIOUS MONONUCLEOSIS NEGATIVE (Negative)
[2023-02-03 11:19] LABS: ALBUMIN/GLOBULIN RATIO 1.3 (1.0-2.2); BILIRUBIN,TOTAL 0.6 mg/dL (0.2-1.0); CREATININE 0.6 mg/dL (0.4-1.0); MAGNESIUM 1.8 mg/dL (1.7-2.8); POTASSIUM 3.5 mmol/L (3.5-5.0)
[2023-02-03 11:26] LABS: BACTERIA,URINE Rare /HPF (None Seen); RBC,URINE None Seen /HPF (0-5); SQUAMOUS EPITHELIAL CELL,UR MOD Squamous (<= Few)
[2023-02-03 12:05] VITALS: BP 128/74
[2023-02-03 12:08] LABS: B. PARAPERTUSSIS- RESP PCR PAN NOT DETECTED; B. PERTUSSIS- RESP PCR PANEL NOT DETECTED; C. PNEUMONIAE- RESP PCR PANEL NOT DETECTED; CORONAVIRUS 229E-RESP PCR NOT DETECTED; CORONAVIRUS HKU1-RESP PCR NOT DETECTED; CORONAVIRUS NL63-RESP PCR NOT DETECTED; CORONAVIRUS OC43-RESP PCR NOT DETECTED; HUMAN METAPNEUMOVIRUS NOT DETECTED; INFLUENZA A- RESP PCR PANEL NOT DETECTED; INFLUENZA B - RESP PCR PANEL NOT DETECTED; M. PNEUMONIAE- RESP PCR PANEL NOT DETECTED; PARAINFLUENZA VIRUS 1 NOT DETECTED; PARAINFLUENZA VIRUS 2 NOT DETECTED; PARAINFLUENZA VIRUS 3 NOT DETECTED; PARAINFLUENZA VIRUS 4 NOT DETECTED; RHINOVIRUS/ENTEROVIRUS NOT DETECTED; RSV- RESP PCR PANEL NOT DETECTED; SARS-CoV-2 -RESP PCR PANEL NOT DETECTED
== END 2023-02-03 12:07 | disposition home or self-care (01) ==
LOC: ED 09:42
DX: R06.00 Dyspnea, unspecified (principal); R53.83 Other fatigue; F17.200 Nicotine dependence, unspecified, uncomplicated; Z20.822 Contact with and (suspected) exposure to COVID-19
CPT/HCPCS: 36415; 80053; 81001; 81003; 81025; 83605; 83690; 83735; 83880; 84443; 85025; 86308; 87086; 87633; 93005; 99284